=== PATIENT | female | born 1935 | race Caucasian/White ===

== ENCOUNTER 2017-01-16 02:12 | Observation (INO) | payer OTHER ==
[~2017-01-16] VITALS: Ht 157.5 cm; Wt 82.2 kg
[2017-01-16] VITALS (11 sets, daily range): BP systolic 106–179; BP diastolic 49–92; PULSE 63–84; RESP 16–19; TEMP 97–97.8; O2SAT 94–99
[~2017-01-16 02:12] MED LIST: ALPR0.5T99 PO; AMLO10 PO; ANTI2TAB PO; BENT20TA PO; DOCU1CAP39 PO; ENAL10 PO; FURO20 PO; LEVO50TA51 PO; LOSA100T PO; METF500 PO; METO50CR PO; OMEG100037 PO; ONDA4TAB7 PO; OXYC1SOL5 PO; POTA-243 PO; PRAV80 PO; PRED10 PO; PROT40TA PO; SERT50 PO; VITA20003 PO; VITA500S3 PO
[2017-01-16] MEDS ORDERED: SODIUM CHLORIDE 0.9% FLUSH 5 ML FLUSH IVF PRN ×2 (02:45→07:15)
[2017-01-16] MEDS ORDERED: HYDROmorphone HCL PF 1 MG/ML VIAL IV PUSH ONE ×2 (02:45→06:00)
[2017-01-16] MEDS ORDERED: ONDANSETRON HCL 4 MG/2 ML VIAL IVP ONE (02:45)
--- NOTE | 2017-01-16 02:56 | PD ---
HPI Chief Complaint: GI Complaint Time Seen by Provider: 02:36 Travel History International Travel<30 days: No Contact w/Intl Traveler<30days: No Traveled to known affect area: No History of Present Illness HPI 81 year-old female presents to the emergency department for complaint of severe abdominal pain. Pain is bilateral lower quadrant. Patient has associated nausea. Patient denies fever or chills. Patient's had no vomiting. No diarrhea or constipation. Last BM last evening and normal for Patient denies dysuria frequency or urgency. Patient's had multiple abdominal surgeries with several visible well-healed abdominal scars. Patient has no chest pain no shortness of breath no referred neck jaw back shoulder or arm pain. Unable to identify exacerbating factors no relief with Pepto-Bismol. PFSH Past Medical History Narrative Medical Anxiety depression dyslipidemia diabetes hypertension diverticulitis DVT COPD pneumonia hypothyroidism peptic ulcer disease gastric bypass with reversal; alcohol use; nursing notes reviewed Arthritis: Yes Asthma: No Autoimmune Disease: No Blood Disorders: Yes Anxiety: Yes Depression: Yes Heart Rhythm Problems: No Cancer: No Cardiovascular Problems: No High Cholesterol: Yes Chemotherapy: No Chest Pain: No Congestive Heart Failure: No COPD: No Cerebrovascular Accident: No Diabetes: Yes Diminished Hearing: No Diverticulitis: Yes Deep Vein Thrombosis: Yes Endocrine: Yes Gastrointestinal Disorders: Yes (DIVERTICULTIS) GERD: Yes Genitourinary: Yes Hepatitis: No Hiatal Hernia: No Hypertension: Yes Immune Disorder: No Implanted Vascular Access Dvce: No Kidney Stones: Yes Musculoskeletal: Yes (arthritis low back pain) Neurologic: No Psychiatric: Yes (anxiety depression) Reproductive: No Respiratory: Yes (copd) Immunizations Current: No Migraines: No Myocardial Infarction: No Pneumonia: Yes Radiation Therapy: No Renal Failure: No Seizures: No Sleep Apnea: No Thyroid Disease: Yes Ulcer: Yes PNEUMOCCOCAL Vaccine (Year): 1 Menopausal: Yes Past Surgical History Abdominal Surgery: Yes (partial colon resection) AICD: No Appendectomy: No Arteriovenous Shunt: No Cardiac Surgery: No Cholecystectomy: No Ear Surgery: No Endocrine Surgery: No Eye Surgery: Yes (mervat cataract surgery) Genitourinary Surgery: Yes (OR FOR DIVERTICULITIS; PERHAPS A PARTILAL COLECTOMY ) Gynecologic Surgery: Yes (HYSTERECTOMY) Hysterectomy: Yes Insulin Pump: No Joint Replacement: No Oral Surgery: No Pacemaker: No Thoracic Surgery: No Other Surgery: Yes (GASTRIC BYPASS WITH REVERSAL 30 YEARS AGO) Family History Family Hypercholesterolemia: Yes Social History Alcohol Use: Yes (OCCAISIONAL) Tobacco Use: No Substance Use: No Allergies-Medications (Allergen,Severity, Reaction): Coded Allergies: Codeine (Verified Adverse Reaction, Severe, Nausea/Vomiting, 01/16/17) NAUSEA/VOMITING Reported Meds & Prescriptions Reported Meds & Active Scripts Active Reported Gabby-Sedona (Aspirin Effervescent) 325-1,000-1,700 Mg Tabef Pepto-Bismol Liq (Bismuth Subsalicylate) 262 Mg/15 Ml Susp 30 Ml PO PRN Do not exceed 8 doses (240 mL or 16 tbsp) in 24 hours. Oxycodone-Acetaminophen 5-325 mg Tab 1 Tab PO Q4H PRN Zofran (Ondansetron HCl) 4 Mg Tab 4 Mg PO Q12HR PRN Metoprolol Succinate ER 24 HR (Metoprolol Succinate) 50 Mg Tab 50 Mg PO DAILY Losartan (Losartan Potassium) 100 Mg Tab 100 Mg PO DAILY Levoxyl (Levothyroxine Sodium) 50 Mcg Tab 50 Mcg PO DAILY Lasix (Furosemide) 20 Mg Tab 20 Mg PO DAILY Vasotec (Enalapril Maleate) 10 Mg Tab 10 Mg PO BID Vitamin B12 (Cyanocobalamin) 500 Mcg Tab 500 Mcg PO DAILY Vitamin D (Cholecalciferol) 2,000 Unit Tab Norvasc (Amlodipine Besylate) 10 Mg Tab 10 Mg PO DAILY Zoloft (Sertraline HCl) 50 Mg Tab 50 Mg PO DAILY Zoloft (Sertraline HCl) 25 Mg Tab 25 Mg PO DAILY Pravastatin 80 Mg Tab 80 Mg PO DAILY Klor-Con 10 (Potassium Chloride) 10 Meq Tab 10 Meq PO DAILY Protonix (Pantoprazole Sodium) 40 Mg Tab 40 Mg PO DAILY Review of Systems Except as stated in HPI: all other systems reviewed are Neg General / Constitutional: No: Fever, Chills HENT: No: Congestion Cardiovascular: No: Chest Pain or Discomfort Respiratory: Positive: Cough (chronic cough x 3 months), No: Shortness of Breath, Wheezing, Pleuritic Pain Gastrointestinal: Positive: Nausea, Abdominal Pain, No: Vomiting, Diarrhea Genitourinary: No: Dysuria, Flank Pain Musculoskeletal: No: Myalgias, Arthralgias Skin: No Rash Neurologic: No: Weakness Psychiatric: Positive: Anxiety Hematologic/Lymphatic: No: Easy Bruising Physical Exam Narrative GENERAL: Well-developed well-nourished female in no acute distress no respiratory distress but intermittently tearful. SKIN: Warm and dry. HEAD: Normocephalic. EYES: No scleral icterus. No injection or drainage. NECK: Supple, trachea midline. No JVD or lymphadenopathy. CARDIOVASCULAR: Regular rate and rhythm without murmurs, gallops, or rubs. RESPIRATORY: Breath sounds equal bilaterally. No accessory muscle use. GASTROINTESTINAL: Abdomen soft, diffusely tender bilateral lower quadrants greater than bilateral upper quadrant tenderness with voluntary guarding, no rebound, nondistended. MUSCULOSKELETAL: No cyanosis, or edema. BACK: Nontender without obvious deformity. No CVA tenderness. Data Data Last Documented VS Vital Signs Date Time Temp Pulse Resp B/P Pulse Ox O2 Delivery O2 Flow Rate FiO2 01/16/17 06:14 69 16 106/49 99 Room Air 01/16/17 02:20 97.0 Orders Complete Blood Count With Diff (01/16/17 02:36) Comprehensive Metabolic Panel (01/16/17 02:36) Lipase (01/16/17 02:36) Urinalysis - C+S If Indicated (01/16/17 02:36) Ct Abd/Pel W Iv Contrast(Rout) (01/16/17 02:36) Iv Access Insert/Monitor (01/16/17 02:36) Ecg Monitoring (01/16/17 02:36) Oximetry (01/16/17 02:36) Ondansetron Inj (Zofran Inj) (01/16/17 02:45) Sodium Chloride 0.9% Flush (Ns Flush) (01/16/17 02:45) Electrocardiogram (01/16/17 02:36) Chest, Single Ap (01/16/17 02:36) Hydromorphone Pf Inj (Dilaudid Pf Inj) (01/16/17 02:45) Iohexol 350 Inj (Omnipaque 350 Inj) (01/16/17 04:19) Hydromorphone Pf Inj (Dilaudid Pf Inj) (01/16/17 06:00) Place In Observation (01/16/17 ) Vital Signs (Adult) Q4H (01/16/17 06:39) Activity Oob Ad Kim (01/16/17 06:39) Intake + Output SILVIA.QSHIFT (01/16/17 06:39) Diet Clear Liquid (01/16/17 Breakfast) Sodium Chlor 0.9% 1000 Ml Inj (Ns 1000 M (01/16/17 06:39) Sodium Chloride 0.9% Flush (Ns Flush) (01/16/17 06:45) Sodium Chloride 0.9% Flush (Ns Flush) (01/16/17 09:00) Ondansetron Inj (Zofran Inj) (01/16/17 06:45) Bisacodyl Supp (Dulcolax Supp) (01/16/17 06:45) Comprehensive Metabolic Panel (01/17/17 06:00) Complete Blood Count With Diff (01/17/17 06:00) Scd Bilateral/Knee High SILVIA.BID (01/16/17 06:39) Timi Bilateral/Knee High SILVIA.QSHIFT (01/16/17 06:39) Acetaminophen (Tylenol) (01/16/17 06:45) Oxycodone-Acetamin 5-325 Mg (Percocet (01/16/17 06:45) Hydromorphone Pf Inj (Dilaudid Pf Inj) (01/16/17 06:45) Amlodipine (Norvasc) (01/16/17 09:00) Enalapril (Vasotec) (01/16/17 09:00) Losartan (Cozaar) (01/16/17 09:00) Metoprolol Succinate Er (Toprol Xl) (01/16/17 09:00) Pantoprazole (Protonix) (01/16/17 09:00) Pravastatin (Pravachol) (01/16/17 09:00) Sodium Chlor 0.9% 1000 Ml Inj (Ns 1000 M (01/16/17 07:00) Labs Laboratory Tests Test 01/16/17 01/16/17 02:30 04:55 White Blood Count 6.9 TH/MM3 Red Blood Count 4.88 MIL/MM3 Hemoglobin 14.4 GM/DL Hematocrit 43.5 % Mean Corpuscular Volume 89.2 FL Mean Corpuscular Hemoglobin 29.4 PG Mean Corpuscular Hemoglobin 33.0 % Concent Red Cell Distribution Width 13.6 % Platelet Count 175 TH/MM3 Mean Platelet Volume 8.3 FL Neutrophils (%) (Auto) 61.0 % Lymphocytes (%) (Auto) 25.5 % Monocytes (%) (Auto) 8.6 % Eosinophils (%) (Auto) 3.9 % Basophils (%) (Auto) 1.0 % Neutrophils # (Auto) 4.1 TH/MM3 Lymphocytes # (Auto) 1.8 TH/MM3 Monocytes # (Auto) 0.6 TH/MM3 Eosinophils # (Auto) 0.3 TH/MM3 Basophils # (Auto) 0.1 TH/MM3 CBC Comment DIFF FINAL Differential Comment Sodium Level 140 MEQ/L Potassium Level 4.0 MEQ/L Chloride Level 104 MEQ/L Carbon Dioxide Level 28.6 MEQ/L Anion Gap 7 MEQ/L Blood Urea Nitrogen 16 MG/DL Creatinine 1.00 MG/DL Estimat Glomerular Filtration 53 ML/MIN Rate Random Glucose 122 MG/DL Calcium Level 8.4 MG/DL Total Bilirubin 0.4 MG/DL Aspartate Amino Transf 31 U/L (AST/SGOT) Alanine Aminotransferase 30 U/L (ALT/SGPT) Alkaline Phosphatase 86 U/L Total Protein 7.0 GM/DL Albumin 3.7 GM/DL Lipase 108 U/L Urine Collection Type VOIDED Urine Color YELLOW Urine Turbidity CLEAR Urine pH 6.5 Urine Specific Johnson GREATER THAN 1.035 Urine Protein NEG mg/dL Urine Glucose (UA) NEG mg/dL Urine Ketones NEG mg/dL Urine Occult Blood NEG Urine Nitrite NEG Urine Bilirubin NEG Urine Leukocyte Esterase NEG Urine WBC 0-2 /hpf Urine Squamous Epithelial 0-5 /hpf Cells Microscopic Urinalysis Comment CULT NOT INDICATED MDM Medical Decision Making Medical Screen Exam Complete: Yes Emergency Medical Condition: Yes Medical Record Reviewed: Yes (admitted to [place] [id number] for resolved open-loop small bowel obstruction history of multiple previous abdominal surgeries with small bowel obstruction in [address] tho Segundo or hospital reported gastric bypass surgery with reversal of gastric bypass partial colectomy with colostomy and reversal of colostomy hysterectomy and multiple adhesions with surgeries in complications from intra-abdominal mesh placement.) Interpretation(s) EKG: Normal sinus rhythm rate [address] elevation or injury pattern change noted, left anterior fascicular block Urinalysis: Elevated specific gravity greater than 1.2035 otherwise values in normal range CBC & BMP Diagram 01/16/17 02:30 Vital Signs Date Time Temp Pulse Resp B/P Pulse Ox O2 Delivery O2 Flow Rate FiO2 01/16/17 04:24 78 16 125/80 96 Room Air 01/16/17 03:00 84 16 137/72 99 Room Air 01/16/17 02:35 72 16 179/87 99 01/16/17 02:20 97.0 71 18 166/92 97 Differential Diagnosis Abdominal pain, diverticulitis, colitis, UTI, pyelonephritis, renal colic, ischemic colitis, bowel obstruction, pneumonia Narrative Course IV access obtained specimens collected and sent for resulting; patient safety advisor Zofran 4 mg IV and Dilaudid 0.5 mg IV; CT abdomen and pelvis ordered CBC is automated differential values normal range complete metabolic panel values in normal range Patient resting comfortably normal pain resolved Patient sent to CT Urine specimen collected @ 5:[address] results remain pending @ 6:40 CT resulted --inflammatory changes of the small bowel and colon --call placed to Vascular surgery and medicine service Critical Care Narrative Aggregate critical care time was 40 minutes. Time to perform other separately billable procedures was not included in the critical care time. My time did not include minutes spent treating any other patients simultaneously or on activities that did not directly contribute to the patient's treatment. The services I provided to this patient were to treat and/or prevent clinically significant deterioration that could result in: bowel ischemia, shock, I provided critical care services requiring my management, as noted below: Chart data review, documentation time, medication orders and management, vital sign assessments/reviewing monitor data, ordering and reviewing lab tests, ordering and interpreting/reviewing x-rays and diagnostic studies, care of the patient and discussion of the patient with the admitting physicians. [facility] Point of Care Internal Pos. & Neg. Controls: Passed Fecal Specimen Occult Blood: Negative Physician Communication Physician Communication discussed with Dr Ndiaye vascular surgeon -- reviewed CT --reports does not see obvious immediate concern for mesenteric ischemia most likely will need general surgery consultation due to multiple adhesions and possibility for adhesion lysis and will see the patient in consultation as necessary recommends transfer to [facility]; case discussed with medicine service re: vascular surgery recommendation; case discussed with general surgery will see in consultation Diagnosis Primary Impression: Abdominal pain Qualified Code: R10.31 - Right lower quadrant abdominal pain Additional Impressions: Enterocolitis Partial small bowel obstruction Admitting Information Admitting Physician Requests: Francisca Hickey MD Jan 16, 2017 02:56
[2017-01-16] MEDS ORDERED: ZOFR4TAB PO (03:05)
[2017-01-16] MEDS ORDERED: VASO10TA8 PO (03:05)
[2017-01-16] MEDS ORDERED: PRAV80TA2 PO (03:05)
[2017-01-16] MEDS ORDERED: ZOLO50TA PO (03:05)
[2017-01-16] MEDS ORDERED: LOSA100T PO (03:05)
[2017-01-16] MEDS ORDERED: VITA500T49 PO (03:05)
[2017-01-16] MEDS ORDERED: POTA-243 PO (03:05)
[2017-01-16] MEDS ORDERED: AMLO10 PO (03:05)
[2017-01-16] MEDS ORDERED: METO50TA11 PO (03:05)
[2017-01-16] MEDS ORDERED: VITA20003 (03:05)
[2017-01-16] MEDS ORDERED: LEVO50TA53 PO (03:05)
[2017-01-16] MEDS ORDERED: ZOLO25TA PO (03:05)
[2017-01-16] MEDS ORDERED: PROT40TA PO (03:05)
[2017-01-16] MEDS ORDERED: FURO1TAB62 PO (03:05)
[2017-01-16] MEDS ORDERED: OXYC-432 PO (03:05)
[2017-01-16 03:09] LABS: AUTOMATED NEUTROPHIL # 4.1 TH/MM3 (1.8-7.7); BASOPHIL # 0.1 TH/MM3 (0-0.2); EOSINOPHIL # 0.3 TH/MM3 (0-0.4); EOSINOPHIL % 3.9 % (0.0-4.0); HEMATOCRIT 43.5 % (35.0-46.0); HEMO FLAGS DIFF FINAL; LYMPH % 25.5 % (9.0-44.0); LYMPHOCYTE # 1.8 TH/MM3 (1.0-4.8); MEAN CELL VOLUME 89.2 FL (80.0-100.0); MEAN CORPUSCULAR HEMOGLOBIN 29.4 PG (27.0-34.0); MONO % 8.6 % (0.0-8.0); PLATELET COUNT 175 TH/MM3 (150-450); RED BLOOD COUNT 4.88 MIL/MM3 (4.00-5.30); RED CELL DISTRIBUTION WIDTH 13.6 % (11.6-17.2); WHITE BLOOD COUNT 6.9 TH/MM3 (4.0-11.0)
[2017-01-16 03:21] LABS: CHLORIDE 104 MEQ/L (98-107); SODIUM (NA) 140 MEQ/L (136-145)
[2017-01-16] MEDS ORDERED: PEPT262S PO (03:21)
[2017-01-16] MEDS ORDERED: ALKATAB (03:21)
[2017-01-16 03:25] LABS: ANION GAP 7 MEQ/L (5-15); BICARBONATE 28.6 MEQ/L (21.0-32.0); BLOOD UREA NITROGEN 16 MG/DL (7-18)
[2017-01-16 03:28] LABS: ALT (GPT) 30 U/L (10-53); AST (GOT) 31 U/L (15-37); GLOMERULAR FILTRATION RATE 53 ML/MIN (>89)
[2017-01-16 03:30] LABS: TOTAL BILIRUBIN ADULT 0.4 MG/DL (0.2-1.0)
[2017-01-16 03:31] LABS: ALKALINE PHOSPHATASE 86 U/L (45-117)
--- NOTE | 2017-01-16 04:01 | RADHPO ---
EXAM DATE/TIME: 01/16/2017 03:07 [facility] COMPARISON: CHEST SINGLE AP, September 25, 2014, 8:25. INDICATIONS : Shortness of breath. MEDICAL HISTORY : None. SURGICAL HISTORY : ORIF left humerus ENCOUNTER: Initial ACUITY: 1 day PAIN SCORE: 8/10 LOCATION: Bilateral chest FINDINGS: A single view of the chest demonstrates the lungs to be symmetrically aerated without evidence of mas s, infiltrate or effusion. The cardiomediastinal contours are unremarkable. Previous plate and screw fixation of the proximal left humerus. CONCLUSION: No acute disease. Scott Mercado MD on January 16, 2017 at 3:59 Board Certified Radiologist. This report was verified electronically.
[2017-01-16] MEDS ORDERED: IOHEXOL 350 MG/ML 10 ML VIAL (for RAD DIAG) IV ONE (04:19)
[2017-01-16 05:03] LABS: BLOOD, URINE NEG (NEG); GLUCOSE,URINE NEG (NEG); KETONE, URINE NEG (NEG); NITRITE,URINE NEG (NEG); PH, URINE 6.5 (5.0-8.5)
[2017-01-16 05:13] LABS: COMMENT (UR) CULT NOT INDICATED; CULTURE IF INDICATED CULT NOT INDICATED; METHOD OF COLLECTION VOIDED; SQUAMOUS EPITHELIAL CELL URINE 0-5 /hpf (0-5); URINE COLOR YELLOW (YELLW/STRAW); WBC, URINE 0-2 /hpf (0-5)
--- NOTE | 2017-01-16 06:20 | RADHPO ---
EXAM DATE/TIME: 01/16/2017 03:41 [facility] COMPARISON: CT ABDOMEN & PELVIS W/O CONTRAST, September 25, 2014, 17:16. INDICATIONS : Diffuse abdominal pain. IV CONTRAST: 97 cc Omnipaque 350 (iohexol) IV ORAL CONTRAST: No oral contrast ingested. RADIATION DOSE: 17.31 CTDIvol (mGy) MEDICAL HISTORY : Gastroesophageal reflux disease. Deep venous thrombosis. Diverticulitis.Renal calculi. SURGICAL HISTORY : Gastric bypass. ENCOUNTER: Initial ACUITY: 1 day PAIN SCALE: 7/10 LOCATION: abdomen. TECHNIQUE: Volumetric scanning of the abdomen and pelvis was performed. Using automated exposure control and ad justment of the mA and/or kV according to patient size, radiation dose was kept as low as reasonably achievable to obtain optimal diagnostic quality images. FINDINGS: There is induration with prominent inflammatory changes, edema and interloop fluid throughout the rig ht abdomen with very Little similar change in the contralateral left peritoneal cavity. The changes e ncompass the right colon as well as multiple right-sided small bowel loops, none of which are focally abnormal in appearance. There are anastomoses associated with previous bowel surgeries on both right and left sides of the abdomen. There is mild nonspecific small bowel distention. There is no evidenc e of pneumoperitoneum. Looking at the solid organs, the liver, spleen, pancreas and adrenals are unremarkable. There is a cy st involving the posterior lateral upper pole cortex of the right kidney and a tiny nonobstructing le ft kidney stone is present. The gallbladder is mildly distended and contains some dependent stones. There are atherosclerotic changes involving the abdominal aorta and branch vessels. No evidence of an eurysm or major vessel occlusion. In the pelvis, uterus is surgically absent. Urinary bladder is decompressed. There is no evidence of retroperitoneal adenopathy. The inguinal regions are clear. There is a 1.5 cm irregular pleural-based nodular density in the posterior lateral right lung base wh ich should be followed. CONCLUSION: Fairly extensive nonspecific indurated changes in the right peritoneal cavity as described in detail above. No single discrete source for the presumed inflammatory process is identified. Scott Mercado MD on January 16, 2017 at 6:08 Board Certified Radiologist. This report was verified electronically.
[2017-01-16] MEDS ORDERED: ACETAMINOPHEN 325 MG TAB PO PRN (06:45)
[2017-01-16] MEDS ORDERED: oxyCODONE/ACETAMINOPHEN 5 MG/325 MG TAB PO PRN (06:45)
[2017-01-16] MEDS ORDERED: SODIUM CHLORIDE 0.9% FLUSH 5 ML FLUSH FLUSH PRN (06:45)
[2017-01-16] MEDS ORDERED: BISACODYL 10 MG SUPP PR PRN (06:45)
[2017-01-16] MEDS ORDERED: SODIUM CHLOR 0.9% 1000 ML INJ 1,000 ML IV ONE (07:00)
[2017-01-16] MEDS: SODIUM CHLOR 0.9% 1000 ML INJ 1,000 ML IV SCH ×2 (07:02→17:12)
[2017-01-16] MEDS ORDERED: SODIUM CHLORIDE 0.9% FLUSH 5 ML FLUSH IVF SCH (09:00)
[2017-01-16] MEDS: SODIUM CHLORIDE 0.9% FLUSH 5 ML FLUSH FLUSH SCH ×2 (09:00→20:45)
[2017-01-16] MEDS ORDERED: LOSARTAN 50 MG TAB PO SCH (09:00)
[2017-01-16] MEDS: ENALAPRIL MALEATE 10 MG TAB PO SCH ×2 (09:20→20:45)
[2017-01-16] MEDS: METOPROLOL SUCCINATE 50 MG EXTENDED RELEASE TAB PO SCH (09:20)
[2017-01-16] MEDS: PANTOPRAZOLE SOD 40 MG DELAYED RELEASE TAB PO SCH (09:20)
[2017-01-16] MEDS: PRAVASTATIN SOD 80 MG TAB PO SCH (09:21)
[2017-01-16] MEDS: HYDROmorphone HCL PF 1 MG/ML VIAL IV PRN ×4 (09:29→20:45)
--- NOTE | 2017-01-16 17:09 | HHI.HP ---
[facility] Mason Moreno Do, MD Admission Diagnosis abdominal pain h/o partial sbo; enterocolitis Diagnoses: (1) Abdominal pain Diagnosis: Principal Chief Complaint: abdominal pain Travel History International Travel<30 Days: No Contact w/Intl Traveler <30 Da: No Traveled to Known Affected Are: No History of Present Illness patient is a 81 y/o female with history of multiple abdominal surgeries in the past presented to ER with abdominal pain. she says that the pain started yesterday. pain is generalized and severe in intensity. pain is fairly constant. pain was associated with nausea. she had some chills but with no fever. she had a BM yesterday. Review of Systems Constitutional: COMPLAINS OF: Chills, DENIES: Fever, Weight loss, Night Sweats Eyes: DENIES: Blurred vision, Diplopia, Vision loss, Double Vision Ears, nose, mouth, throat: DENIES: Tinnitus, Vertigo, Throat pain, Epistaxis Respiratory: DENIES: Apneas, Cough, Snoring, Wheezing, Hemoptysis, Sputum production, Shortness of breath Cardiovascular: DENIES: Chest pain, Palpitations, Syncope, Dyspnea on Exertion , PND, Lower Extremity Edema, Orthopnea, Claudication Gastrointestinal: COMPLAINS OF: Abdominal pain, Nausea, DENIES: Black stools, Bloody stools, Constipation, Diarrhea, Vomiting, Difficulty Swallowing, Anorexia Genitourinary: DENIES: Urinary frequency, Urgency, Hematuria, Dysuria Musculoskeletal: DENIES: Joint pain, Muscle aches, Stiffness, Joint Swelling Integumentary: DENIES: Rash Neurologic: DENIES: Abnormal gait, Headache, Localized weakness, Paresthesias, Seizures, Speech Problems, Tremor, Poor Balance Psychiatric: DENIES: Anxiety, Confusion, Mood changes, Depression, Hallucinations, Agitation, Suicidal Ideation, Homicidal Ideation, Delusions Past Family Social History Past Medical History hypertension dyslipidemia diabetes mellitus in the past diverticulitis Past Surgical History hysterectomy gastric bypass surgery colon resection/ colostomy Reported Medications [place] (Aspirin Effervescent) 325-1,000-1,700 Mg Tabef Pepto-Bismol Liq (Bismuth Subsalicylate) 262 Mg/15 Ml Susp 30 Ml PO PRN Do not exceed 8 doses (240 mL or 16 tbsp) in 24 hours. Oxycodone-Acetaminophen 5-325 mg Tab 1 Tab PO Q4H PRN Zofran (Ondansetron HCl) 4 Mg Tab 4 Mg PO Q12HR PRN Metoprolol Succinate ER 24 HR (Metoprolol Succinate) 50 Mg Tab 50 Mg PO DAILY Losartan (Losartan Potassium) 100 Mg Tab 100 Mg PO DAILY Levoxyl (Levothyroxine Sodium) 50 Mcg Tab 50 Mcg PO DAILY Lasix (Furosemide) 20 Mg Tab 20 Mg PO DAILY Vasotec (Enalapril Maleate) 10 Mg Tab 10 Mg PO BID Vitamin B12 (Cyanocobalamin) 500 Mcg Tab 500 Mcg PO DAILY Vitamin D (Cholecalciferol) 2,000 Unit Tab Norvasc (Amlodipine Besylate) 10 Mg Tab 10 Mg PO DAILY Zoloft (Sertraline HCl) 50 Mg Tab 50 Mg PO DAILY Zoloft (Sertraline HCl) 25 Mg Tab 25 Mg PO DAILY Pravastatin 80 Mg Tab 80 Mg PO DAILY Klor-Con 10 (Potassium Chloride) 10 Meq Tab 10 Meq PO DAILY Protonix (Pantoprazole Sodium) 40 Mg Tab 40 Mg PO DAILY Allergies: Coded Allergies: Codeine (Verified Adverse Reaction, Severe, Nausea/Vomiting, 01/16/17) NAUSEA/VOMITING Active Ordered Medications Current Medications Ondansetron HCl (Zofran Inj) 4 mg ONCE ONCE IVP Last administered on 01/16/17 02:50; Start 01/16/17 at 02:45; Stop 01/16/17 at 02:46; Status DC IV Flush (NS Flush) 2 ml UNSCH PRN IVF FLUSH AFTER USING IV ACCESS; Start at 02:45; Status Cancel Hydromorphone HCl (Dilaudid Pf Inj) 0.5 mg ONCE ONCE IV PUSH Last administered on 01/16/17 02:50; Start 01/16/17 at 02:45; Stop 01/16/17 at 02:46; Status DC Iohexol (Omnipaque 350 Inj) 97 ml STK-MED ONCE IV Last administered on 04:19; Start 01/16/17 at 04:19; Stop 01/16/17 at 04:20; Status DC Hydromorphone HCl 0.2 mg 0.2 mg ONCE ONCE IV PUSH Last administered on 06:07; Start 01/16/17 at 06:00; Stop 01/16/17 at 06:01; Status DC Sodium Chloride (NS 1000 ml Inj) 1,000 ml @ 100 mls/hr Q10H IV Last administered on 01/16/17 07:02; Start 01/16/17 at 06:39 IV Flush (NS Flush) 2 ml UNSCH PRN FLUSH FLUSH AFTER USING IV ACCESS Last administered on 01/16/17 09:33; Start 01/16/17 at 06:45 IV Flush (NS Flush) 2 ml BID FLUSH ; Start 01/16/17 at 09:00 Ondansetron HCl (Zofran Inj) 4 mg Q6H PRN IVP NAUSEA OR VOMITING; Start at 06:45 Bisacodyl (Dulcolax Supp) 10 mg DAILY PRN CA CONSTIPATION; Start 01/16/17 at 06: 45 Acetaminophen (Tylenol) 650 mg Q6H PRN PO FEVER/PAIN SCALE 1 TO 2; Start at 06:45 Oxycodone/ Acetaminophen (Percocet 5-325 Mg) 1 tab Q6H PRN PO PAIN SCALE 3 TO 5; Start 01/16/17 at 06:45 Hydromorphone HCl (Dilaudid Pf Inj) 0.5 mg Q3H PRN IV Pain 6-10 Last administered on 01/16/17 13:25; Start 01/16/17 at 06:45 Amlodipine Besylate (Norvasc) 10 mg DAILY PO Last administered on 01/16/17 09: 21; Start 01/16/17 at 09:00 Enalapril Maleate (Vasotec) 10 mg BID PO Last administered on 01/16/17 09:20; Start 01/16/17 at 09:00 Losartan Potassium (Cozaar) 100 mg DAILY PO Last administered on 01/16/17 09:21 ; Start 01/16/17 at 09:00 Metoprolol Succinate (Toprol Xl) 50 mg DAILY PO Last administered on 01/16/17 09:20; Start 01/16/17 at 09:00 Pantoprazole Sodium (Protonix) 40 mg DAILY PO Last administered on 01/16/17 09: 20; Start 01/16/17 at 09:00 Pravastatin Sodium 80 mg 80 mg DAILY PO Last administered on 01/16/17 09:21; Start 01/16/17 at 09:00 Sodium Chloride (NS 1000 ml Inj) 1,000 ml @ 999 mls/hr BOLUS ONCE IV Last administered on 01/16/17 07:03; Start 01/16/17 at 07:00; Stop 01/16/17 at 08:00; Status DC IV Flush (NS Flush) 2 ml BID IVF ; Start 01/16/17 at 09:00; Status UNV IV Flush (NS Flush) 2 ml UNSCH PRN IVF FLUSH AFTER USING IV ACCESS; Start at 07:15; Status UNV Family History not relevant to this admission. Social History doesn't smoke. drinks occasionally. Physical Exam Vital Signs Vital Signs Date Time Temp Pulse Resp B/P Pulse Ox O2 Delivery O2 Flow Rate FiO2 01/16/17 13:29 97.5 63 18 139/65 94 01/16/17 12:35 69 18 148/71 94 01/16/17 09:25 67 16 135/69 94 Room Air 01/16/17 07:00 16 01/16/17 06:14 69 16 106/49 99 Room Air 01/16/17 04:24 78 16 125/80 96 Room Air 01/16/17 03:00 84 16 137/72 99 Room Air 01/16/17 02:35 72 16 179/87 99 01/16/17 02:20 97.0 71 18 166/92 97 Physical Exam GENERAL: This is a well-nourished, well-developed patient, in no apparent distress. SKIN: No rashes, ecchymoses or lesions. Cool and dry. HEAD: Atraumatic. Normocephalic. No temporal or scalp tenderness. EYES: Pupils equal round and reactive. Extraocular motions intact. No scleral icterus. No injection or drainage. ENT: Nose without bleeding, purulent drainage or septal hematoma. Throat without erythema, tonsillar hypertrophy or exudate. Uvula midline. Airway patent. NECK: Trachea midline. No JVD or lymphadenopathy. Supple, nontender, no meningeal signs. CARDIOVASCULAR: Regular rate and rhythm without murmurs, gallops, or rubs. RESPIRATORY: Clear to auscultation. Breath sounds equal bilaterally. No wheezes , rales, or rhonchi. GASTROINTESTINAL: Abdomen soft, generalized tenderness, nondistended. No hepato- splenomegaly, or palpable masses. No guarding. MUSCULOSKELETAL: Extremities without clubbing, cyanosis, or edema. No joint tenderness, effusion, or edema noted. No calf tenderness. Negative Homans sign bilaterally. NEUROLOGICAL: Awake and alert. Cranial nerves II through XII intact. Motor and sensory grossly within normal limits. Five out of 5 muscle strength in all muscle groups. Normal speech. Laboratory Laboratory Tests Test 01/16/17 01/16/17 02:30 04:55 White Blood Count 6.9 Red Blood Count 4.88 Hemoglobin 14.4 Hematocrit 43.5 Mean Corpuscular Volume 89.2 Mean Corpuscular Hemoglobin 29.4 Mean Corpuscular Hemoglobin 33.0 Concent Red Cell Distribution Width 13.6 Platelet Count 175 Mean Platelet Volume 8.3 Neutrophils (%) (Auto) 61.0 Lymphocytes (%) (Auto) 25.5 Monocytes (%) (Auto) 8.6 Eosinophils (%) (Auto) 3.9 Basophils (%) (Auto) 1.0 Neutrophils # (Auto) 4.1 Lymphocytes # (Auto) 1.8 Monocytes # (Auto) 0.6 Eosinophils # (Auto) 0.3 Basophils # (Auto) 0.1 CBC Comment DIFF FINAL Differential Comment Sodium Level 140 Potassium Level 4.0 Chloride Level 104 Carbon Dioxide Level 28.6 Anion Gap 7 Blood Urea Nitrogen 16 Creatinine 1.00 Estimat Glomerular Filtration 53 Rate Random Glucose 122 Calcium Level 8.4 Total Bilirubin 0.4 Aspartate Amino Transf 31 (AST/SGOT) Alanine Aminotransferase 30 (ALT/SGPT) Alkaline Phosphatase 86 Total Protein 7.0 Albumin 3.7 Lipase 108 Urine Collection Type VOIDED Urine Color YELLOW Urine Turbidity CLEAR Urine pH 6.5 Urine Specific [place] GREATER THAN 1.035 Urine Protein NEG Urine Glucose (UA) NEG Urine Ketones NEG Urine Occult Blood NEG Urine Nitrite NEG Urine Bilirubin NEG Urine Leukocyte Esterase NEG Urine WBC 0-2 Urine Squamous Epithelial 0-5 Cells Microscopic Urinalysis Comment CULT NOT INDICATED Result Diagram: 01/16/17 0230 01/16/17 0230 Imaging Last Impressions Chest X-Ray 01/16/17235 Signed Impressions: Service Date/Time: Monday, January 16, 2017 03:07 - CONCLUSION: No acute disease. Scott Mercado MD Abdomen/Pelvis CT 01/16/17235 Signed Impressions: Service Date/Time: Monday, January 16, 2017 03:41 - CONCLUSION: Fairly extensive nonspecific indurated changes in the right peritoneal cavity as described in detail above. No single discrete source for the presumed inflammatory process is identified. Scott Mercado MD EKG; sinus rhythm with left anterior fascicular block Assessment and Plan Assessment and Plan A/P - abdominal pain with history of multiple abdominal surgeries in the past CT of the abdomen with indurated changes / inflammatory process in right peritoneal cavity on liquid diet- continue with pain control and start IV antibiotics- general surgery consulted. -hypertension; continue norvasc and enalapril- will monitor and adjust the regimen as needed. -dyslipidemia; on statin -DVT prophylaxis; on SCD's Discussed Condition With the patient. Problem Qualifiers (1) Abdominal pain: Qualified Code: R10.31 - Right lower quadrant abdominal pain Janny Ackerman MD Jan 16, 2017 17:09
[2017-01-16] MEDS: PIPERACIL-TAZO 3.375 GM PREMIX 50 ML IV SCH (17:44)
--- NOTE | 2017-01-16 19:25 | EKG ---
Date Performed: 01/16/2017 Time Performed: 02:44:44 PTAGE: 81 years EKG: Sinus rhythm Left anterior fascicular block Since previous tracing, no significant change noted Borderline ECG PREVIOUS TRACING : 12/27/2015 07.49 DOCTOR: Alec Boston Interpretating Date/Time 01/16/2017 19:23:17
[2017-01-17] VITALS: BP 121/68; PULSE 84; RESP 21; TEMP 97.9; O2SAT 99
[2017-01-17] MEDS: PIPERACIL-TAZO 3.375 GM PREMIX 50 ML IV SCH ×5 (00:25→23:47)
[2017-01-17] MEDS: HYDROmorphone HCL PF 1 MG/ML VIAL IV PRN ×7 (01:35→23:46)
[2017-01-17] MEDS: SODIUM CHLOR 0.9% 1000 ML INJ 1,000 ML IV SCH ×3 (03:19→23:47)
[2017-01-17 05:39] LABS: AUTOMATED NEUTROPHIL # 2.5 TH/MM3 (1.8-7.7); BASOPHIL % 0.4 % (0.0-2.0); EOSINOPHIL # 0.2 TH/MM3 (0-0.4); EOSINOPHIL % 4.7 % (0.0-4.0); HEMO FLAGS DIFF FINAL; LYMPH % 25.1 % (9.0-44.0); LYMPHOCYTE # 1.1 TH/MM3 (1.0-4.8); MEAN CELL VOLUME 89.9 FL (80.0-100.0); MEAN CORPUSCULAR HEMOGLOBIN 29.7 PG (27.0-34.0); MONO % 10.8 % (0.0-8.0); PLATELET COUNT 112 TH/MM3 (150-450); RED BLOOD COUNT 3.78 MIL/MM3 (4.00-5.30); RED CELL DISTRIBUTION WIDTH 14.1 % (11.6-17.2); WHITE BLOOD COUNT 4.3 TH/MM3 (4.0-11.0)
[2017-01-17 06:04] LABS: ALKALINE PHOSPHATASE 69 U/L (45-117); ALT (GPT) 23 U/L (10-53); ANION GAP 9 MEQ/L (5-15); AST (GOT) 23 U/L (15-37); BICARBONATE 28.2 MEQ/L (21.0-32.0); BLOOD UREA NITROGEN 8 MG/DL (7-18); CHLORIDE 103 MEQ/L (98-107); GLOMERULAR FILTRATION RATE 63 ML/MIN (>89); POTASSIUM 4.5 MEQ/L (3.5-5.1); SODIUM (NA) 140 MEQ/L (136-145); TOTAL BILIRUBIN ADULT 0.5 MG/DL (0.2-1.0)
[2017-01-17] MEDS: ONDANSETRON HCL 4 MG/2 ML VIAL IVP PRN ×3 (07:32→17:30)
[2017-01-17 07:40] VITALS: BP 177/74; PULSE 66; RESP 18; TEMP 98.1; O2SAT 93
[2017-01-17] MEDS: ENALAPRIL MALEATE 10 MG TAB PO SCH ×2 (09:23→20:53)
[2017-01-17] MEDS: METOPROLOL SUCCINATE 50 MG EXTENDED RELEASE TAB PO SCH (09:23)
[2017-01-17] MEDS: SODIUM CHLORIDE 0.9% FLUSH 5 ML FLUSH FLUSH SCH ×2 (09:24→20:54)
[2017-01-17] MEDS: PANTOPRAZOLE SOD 40 MG DELAYED RELEASE TAB PO SCH (09:24)
[2017-01-17] MEDS: PRAVASTATIN SOD 80 MG TAB PO SCH (09:24)
--- NOTE | 2017-01-17 09:26 | MB ---
cc: SHAREE VÁSQUEZ MD DATE OF CONSULTATION: 01/17/2017 REASON FOR CONSULTATION: HISTORY OF PRESENT ILLNESS: The patient is a 81-year-old who has a 2-day history of crampy lower abdominal pain with some nausea but no vomiting. She has been moving her bowels with her last bowel movement yesterday with some diarrhea without blood. The patient has a history of colostomy reversal by Dr. Lam in 2003. She has had complex ventral hernia repair at that time. She was evaluated in the emergency room where CT scan showed inflammation surrounding loops of bowel on the right side of the abdomen. There is some loculated fluid between loops of small bowel in that position. There is no free air. There is no actual inflammatory thickening of the small bowel. The patient has had previous episodes of this problem. She was evaluated in 2011 and 2013 with similar symptoms and with nearly identical CT scan findings. Those episodes resolved with conservative treatment. The recent CT scan does not show any evidence of small bowel obstruction. The patient has a history of pneumonia and some cardiac problems. She states she has had fluid around her heart in the past. PHYSICAL EXAMINATION: She is alert without distress but is complaining of pain in the abdomen. She is afebrile with normal vital signs. Respirations are normal. Skin is warm and dry. Abdomen is mostly soft but there is same moderate tenderness in the right mid abdomen area. There is tenderness on the left in addition but less. Rectal: Negative. LABORATORY DATA: Show a normal white blood cell count and hemoglobin. Electrolytes are normal. Liver function tests are normal. ASSESSMENT: Abdominal pain and evidence of small bowel inflammation on CT scan. The reason for the inflammation is not clear. Consider acute enteritis, inflammatory bowel disease or ischemia. The patient has had previous episodes of this problem that resolved with conservative treatment. RECOMMENDATIONS: IV fluids, antibiotics, and will arrange for a CT angiogram to evaluate the bowel vasculature as well as a lactic acid level. MD LESTER Joaquin/TRISHA /9:08 AM /9:17 AM MATTHEW
[2017-01-17] MEDS ORDERED: IOHEXOL 350 MG/ML 10 ML VIAL (for RAD DIAG) IV ONE (09:54)
[2017-01-17] MEDS ORDERED: ONDANSETRON HCL 4 MG/2 ML VIAL IV PUSH ONE (10:30)
--- NOTE | 2017-01-17 11:30 | RADHPO ---
EXAM DATE/TIME: 01/17/2017 09:42 [place] COMPARISON: CT ABDOMEN & PELVIS W CONTRAST, January 16, 2017, 3:41. INDICATIONS : Non specific abdominal pain. History of small bowel obstruction. Evaluate for ischemia. IV CONTRAST: 94 cc Omnipaque 350 (iohexol) IV ORAL CONTRAST: No oral contrast ingested. RADIATION DOSE: 24.62 CTDIvol (mGy) MEDICAL HISTORY : Hypertension. Diverticulitis. Cholelithiasis.Diabetes. SURGICAL HISTORY : Colon resection. ENCOUNTER: Initial ACUITY: 2 days PAIN SCALE: 4/10 LOCATION: Bilateral abdomen/pelvis TECHNIQUE: Volumetric scanning was performed using a multi-row detector CT scanner. The data was post processed with a variety of visualization algorithms including full volume maximum intensity projection, multi -planar sliding thin slab reformation, curved planar reformation, and surface rendering techniques. Using automated exposure control and adjustment of the mA and/or kV according to patient size, radiat ion dose was kept as low as reasonably achievable to obtain optimal diagnostic quality images. FINDINGS: ABDOMINAL AORTA: There is severe atherosclerotic disease of the abdominal aorta. No aneurysm is present. Celiac trunk is patent. There is atherosclerotic disease and the ostium but no significant stenosis is present. Ma j. branches of the celiac trunk are patent. The superior mesenteric artery demonstrates no significan t stenosis. There is mild atherosclerotic disease near the ostium. Multiple peripheral superior mesen teric artery branches demonstrate normal enhancement without occlusion. JUAQUIN is questionably patent. T here are single renal arteries bilaterally with atherosclerotic disease at the ostia. There is modera te narrowing of the proximal right renal artery. RIGHT PELVIS: There is moderate atherosclerotic disease of the common iliac artery. The internal and external iliac artery demonstrate no significant stenosis. No aneurysm is present. LEFT PELVIS: There is moderate atherosclerotic disease of the left common iliac artery. No significant stenosis is identified within the internal or external iliac artery. The venous side is not evaluated on this examination but demonstrated no abnormality on yesterda y's study. The inflammatory changes and fluid within the mesentery particularly in the right abdomen have significantly improved in the interval and almost completely resolved. There is no free air or s ignificant free fluid present. Calcified stones are present within the gallbladder. There has been pr ior surgery in the colon and in multiple locations of the small bowel. Postsurgical changes are prese nt on the anterior abdominal wall. There is a 4.9 cm cyst at the upper pole of the right kidney. CONCLUSION: 1. The arterial mesenteric vasculature demonstrates no stenosis or occlusion. The mesenteric venous s tructures demonstrated no abnormality on yesterday's examination. Overall, there is severe atheroscle rotic disease within the aorta. 2. The mesenteric inflammatory changes and fluid in the right abdomen described on yesterday's examin ation have significantly improved and nearly completely resolved. 3. Otherwise, incidental findings are described above. Scott Ferguson MD on January 17, 2017 at 11:21 Board Certified Radiologist. This report was verified electronically.
[2017-01-17 12:05] VITALS: BP 170/76; PULSE 67; RESP 19; TEMP 97.7; O2SAT 93
[2017-01-17] MEDS: metroNIDAZOLE 500 MG INJ 100 ML IV SCH ×2 (12:53→20:53)
[2017-01-17 15:28] VITALS: BP 161/72; PULSE 67; RESP 18; TEMP 97.7; O2SAT 92
--- NOTE | 2017-01-17 17:10 | HHI.PR ---
Subjective Remarks Patient seen this morning around 10:30 AM. She reports nausea after drinking CT contrast. Denies any chest pain or shortness of breath. Objective Vital Signs Date Time Temp Pulse Resp B/P Pulse Ox O2 Delivery O2 Flow Rate FiO2 01/17/17 15:28 97.7 67 18 161/72 92 01/17/17 13:24 20 01/17/17 12:05 97.7 67 19 170/76 93 01/17/17 07:40 98.1 66 18 177/74 93 01/17/17 00:00 97.9 84 21 121/68 99 01/16/17 20:00 98 01/16/17 19:45 97.8 68 19 128/74 97 I/O 01/16/17 01/16/17 01/16/17 01/17/17 01/17/17 01/17/17 07:00 15:00 23:00 07:00 15:00 23:00 Intake Total 1000 ml 1000 ml 500 ml Output Total 250 ml 800 ml Balance -250 ml 1000 ml 200 ml 500 ml Intake Oral 500 ml IV Total 1000 ml 500 ml 500 ml Output Urine Total 250 ml 800 ml # Voids 1 2 4 Result Diagram: 01/17/17 0509 01/17/17 0509 Imaging Last Impressions Abdomen/Pelvis CT 01/17/17 0901 Signed Impressions: Service Date/Time: Tuesday, January 17, 2017 09:42 - CONCLUSION: 1. The arterial mesenteric vasculature demonstrates no stenosis or occlusion. The mesenteric venous structures demonstrated no abnormality on yesterday's examination. Overall, there is severe atherosclerotic disease within the aorta. 2. The mesenteric inflammatory changes and fluid in the right abdomen described on yesterday's examination have significantly improved and nearly completely resolved. 3. Otherwise, incidental findings are described above. Scott Ferguson MD Chest X-Ray 01/16/17 0236 Signed Impressions: Service Date/Time: Monday, January 16, 2017 03:07 - CONCLUSION: No acute disease. Scott Mercado MD Objective Remarks GENERAL: Sitting up in bed. Appears uncomfortable. Alert and oriented 3. SKIN: Warm and dry. HEAD: Normocephalic. EYES: No scleral icterus. No injection or drainage. NECK: Supple, trachea midline. No JVD CARDIOVASCULAR: Regular rate and rhythm without murmurs, gallops, or rubs. RESPIRATORY: Breath sounds equal bilaterally. No accessory muscle use. GASTROINTESTINAL: Abdomen soft. Tender to moderate palpation. No rebound or guarding. Positive bowel sounds. MUSCULOSKELETAL: No cyanosis, or edema. BACK: Nontender without obvious deformity. No CVA tenderness. A/P Assessment and Plan //abdominal pain with history of multiple abdominal surgeries in the past - CT of the abdomen with indurated changes / inflammatory process in right peritoneal cavity -on liquid diet - continue with pain control -Continue Zosyn and metronidazole. -CT abdomen as above. -Continue to monitor. Appreciate an oral surgery assistance. //Nausea. Secondary to pain. -01/17. Increase Zofran //hypertension - continue norvasc -Hold losartan -When necessary enalapril We'll pressure acceptable. Continue to monitor. //dyslipidemia; on statin //DVT prophylaxis; on SCD's Discharge Planning When clinically improved. Harrison Eric MD Jan 17, 2017 17:10
[2017-01-17 20:34] VITALS: BP 192/76; PULSE 76; O2SAT 92
[2017-01-18] VITALS (7 sets, daily range): BP systolic 138–227; BP diastolic 60–95; PULSE 65–75; RESP 18; TEMP 98; O2SAT 94–98
[2017-01-18] MEDS: HYDROmorphone HCL PF 1 MG/ML VIAL IV PRN ×2 (04:21→08:27)
[2017-01-18] MEDS: metroNIDAZOLE 500 MG INJ 100 ML IV SCH (05:49)
[2017-01-18] MEDS: PIPERACIL-TAZO 3.375 GM PREMIX 50 ML IV SCH (05:49)
[2017-01-18] MEDS: METOPROLOL SUCCINATE 50 MG EXTENDED RELEASE TAB PO SCH (08:13)
[2017-01-18] MEDS: PRAVASTATIN SOD 80 MG TAB PO SCH (08:13)
[2017-01-18] MEDS: SODIUM CHLORIDE 0.9% FLUSH 5 ML FLUSH FLUSH SCH (08:13)
[2017-01-18] MEDS: ENALAPRIL MALEATE 10 MG TAB PO SCH (08:13)
[2017-01-18] MEDS: PANTOPRAZOLE SOD 40 MG DELAYED RELEASE TAB PO SCH (08:13)
[2017-01-18] MEDS: SODIUM CHLOR 0.9% 1000 ML INJ 1,000 ML IV SCH (08:15)
[2017-01-18] MEDS: ONDANSETRON HCL 4 MG/2 ML VIAL IVP PRN (08:34)
[2017-01-18] MEDS ORDERED: CIPR-9 PO (10:38)
[2017-01-18] MEDS ORDERED: OXYC-432 PO (10:38)
[2017-01-18] MEDS ORDERED: METR500T10 PO (10:38)
[2017-01-18] MEDS ORDERED: ZOFR4TAB PO (10:38)
--- NOTE | 2017-01-18 10:44 | HHI.PR ---
Subjective Remarks pt says she feels well. denies any CP or sob. abd pain much improved. no n/v. feels like going home Objective Vital Signs Date Time Temp Pulse Resp B/P Pulse Ox O2 Delivery O2 Flow Rate FiO2 01/18/17 09:52 138/60 01/18/17 08:59 18 01/18/17 08:01 98.0 66 18 198/85 98 01/18/17 06:24 227/95 01/18/17 03:49 75 94 01/18/17 00:13 70 178/73 95 01/17/17 20:34 76 192/76 92 01/17/17 15:28 97.7 67 18 161/72 92 01/17/17 12:05 97.7 67 19 170/76 93 I/O 01/17/17 01/17/17 01/17/17 01/18/17 01/18/17 01/18/17 07:00 15:00 23:00 07:00 15:00 23:00 Intake Total 500 ml Balance 500 ml IV Total 500 ml # Voids 2 4 Result Diagram: 01/17/17 0509 01/17/17 0509 Objective Remarks GENERAL: Sitting up in bed. Appears comfortable. Alert and oriented 3. SKIN: Warm and dry. small skin rash right flang, small indurated papules, moist area. HEAD: Normocephalic. EYES: No scleral icterus. No injection or drainage. NECK: Supple, trachea midline. No JVD CARDIOVASCULAR: Regular rate and rhythm without murmurs, gallops, or rubs. RESPIRATORY: Breath sounds equal bilaterally. No accessory muscle use. GASTROINTESTINAL: Abdomen soft. nt, nd MUSCULOSKELETAL: No cyanosis, or edema. BACK: Nontender without obvious deformity. No CVA tenderness. A/P Assessment and Plan //abdominal pain with history of multiple abdominal surgeries in the past - CT of the abdomen with indurated changes / inflammatory process in right peritoneal cavity -on liquid diet - continue with pain control -Continue Zosyn and metronidazole. -CT abdomen as above. -much improved on zosyn. Appreciate Colorectal assistance. -Complete 14 days course abx as outpt //Nausea. Secondary to pain. -01/17. Increase Zofran -01/18 resolved. //hypertension - continue norvasc -Hold losartan -When necessary enalapril -SBP elevated yesterday - normal today. cont home meds. possibly was secondary to pain, which is now better. //dyslipidemia; on statin //Skin rash - likley fungal - OTC clotrimazole. //DVT prophylaxis; on SCD's Discharge Planning DC home today if tolerates lunch. Good condition. Diet heart health, activity Ad clovis. See Discharge med list. followup PCP. Harrison Eric MD Jan 18, 2017 10:44
[2017-01-18] MEDS ORDERED: POTASSIUM CHLORIDE 10 MEQ CONTROLLED RELEASE TAB PO SCH (10:45)
[2017-01-18] MEDS ORDERED: ACETAMINOPHEN/HYDROcodone 325 MG/5 MG TAB PO PRN (10:45)
--- NOTE | 2017-01-18 10:56 | HHI.PR ---
Subjective Remarks Pt known to me for last 13 years. Please see old records. Originally referred to me by Dr Evans. I closed her Colostomy/Leroy pouch in April 2004. Also repaired a very large Ventral hernia with Polypropylene mesh over her fascia. She had a very unfavorable abdomen with dense adhesions and near enterotomies requiring SB repairs and resections. She has suffered with obesity and previous gastric bypass and eventual reversal. 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 She eventually went to Dr Eaton at [facility] and had it removed in 2011 and has done well with the Biologic mesh replacement. He did not have to enter the abdomen at that time. These recent several episodes over the last several years are intermittent and may be related to short lived partial SB obstruction with quick resolution of symptoms and CT scan findings. Seems better today. No more N or V. Less pain. Wants to go home today. Objective Vital Signs Date Time Temp Pulse Resp B/P Pulse Ox O2 Delivery O2 Flow Rate FiO2 01/18/17 09:52 138/60 01/18/17 08:59 18 01/18/17 08:01 98.0 66 18 198/85 98 01/18/17 06:24 227/95 01/18/17 03:49 75 94 01/18/17 00:13 70 178/73 95 01/17/17 20:34 76 192/76 92 01/17/17 15:28 97.7 67 18 161/72 92 01/17/17 12:05 97.7 67 19 170/76 93 I/O 01/17/17 01/17/17 01/17/17 01/18/17 01/18/17 01/18/17 07:00 15:00 23:00 07:00 15:00 23:00 Intake Total 500 ml Balance 500 ml IV Total 500 ml # Voids 2 4 Result Diagram: 01/17/17 0509 01/17/17 0509 Objective Remarks Abd: firm from many prior laparotomies. Mild discomfort on palpation but much less according to the patient. Assessment and Plan Assessment and Plan Stable IV infiltrated. Will D/C IV meds. Oral meds and advance diet. D/C today or tomorrow if tolerates diet and symptoms resolved. I will see in several weeks as OP in my office. Scott Lam MD Jan 18, 2017 10:56
[2017-01-18] MEDS ORDERED: CLOTRIMAZOLE 1% CREAM 15 GM TOPICAL SCH (11:00)
[2017-01-19] MEDS ORDERED: LEVOTHYROXINE SODIUM 50 MCG TAB PO SCH (06:00)
[2017-01-19] MEDS ORDERED: CYANOCOBALAMIN 100 MCG TAB PO SCH (09:00)
== END 2017-01-18 15:21 | disposition home or self-care (01) ==
LOC: PHED 02:12 → PHEDA 07:15 → PHEDH 11:12 → NEPHCDU 13:21
PROVIDERS: ADMIT Internal Medicine; ATTEND Internal Medicine
DX: K52.9 Noninfective gastroenteritis and colitis, unspecified (principal); R10.30 Lower abdominal pain, unspecified; J44.9 Chronic obstructive pulmonary disease, unspecified; I10 Essential (primary) hypertension; E78.5 Hyperlipidemia, unspecified; E11.9 Type 2 diabetes mellitus without complications; E03.9 Hypothyroidism, unspecified; F41.8 Other specified anxiety disorders; K21.9 Gastro-esophageal reflux disease without esophagitis; Z87.11 Personal history of peptic ulcer disease
CPT/HCPCS: 71010; 74174; 74177; 80053; 81001; 83605; 83690; 85025; 93005; 96374; 96375; 96376; 99291; G0378; J1170; J2405; J2543; J7030; Q9967

== ENCOUNTER 2017-08-23 | Emergency (ER) | payer OTHER ==
[~2017-08-23] VITALS: Ht 157.5 cm; Wt 83.8 kg
[~2017-08-23] MED LIST changes: +ALKATAB; -ALPR0.5T99 PO; -ANTI2TAB PO; -BENT20TA PO; +CIPR-9 PO; -DOCU1CAP39 PO; -ENAL10 PO; +FURO1TAB62 PO; -FURO20 PO; -LEVO50TA51 PO; +LEVO50TA53 PO; -LOSA100T PO; -METF500 PO; -METO50CR PO; +METO50TA11 PO; +METR500T10 PO; -OMEG100037 PO; -ONDA4TAB7 PO; +OXYC-432 PO; -OXYC1SOL5 PO; +PEPT262S PO; -PRAV80 PO; +PRAV80TA2 PO; -PRED10 PO; -SERT50 PO; +VASO10TA8 PO; +VITA20003; -VITA20003 PO; -VITA500S3 PO; +VITA500T49 PO; +ZOFR4TAB PO; +ZOLO25TA PO
[2017-08-23 00:07] VITALS: BP 141/101; PULSE 89; RESP 20; TEMP 97.6; O2SAT 98
[2017-08-23 00:11] VITALS: PULSE 88; RESP 20; TEMP 97.8; O2SAT 96
[2017-08-23 00:20] VITALS: BP 212/86
--- NOTE | 2017-08-23 00:23 | PD ---
HPI Chief Complaint: Abdominal Pain Time Seen by Provider: 00:18 Travel History International Travel<30 days: No Contact w/Intl Traveler<30days: No Traveled to known affect area: No History of Present Illness HPI 81-year-old female patient with history of diverticulitis, status post colon resection, hysterectomy, multiple medical issues, presents to the ER today for 1 day history of 15 out of 10 abdominal pains, nausea, vomiting. She does not know any exacerbating or alleviating factors. She denies any diarrhea, fevers, or other symptoms. She denies any previous symptoms like this. Modifying Factors: None Associated Signs & Symptoms: Abdominal pains, nausea and vomiting Risk Factors: Diverticulitis history, colonic Resection, hysterectomy, multiple abdominal surgeries PFSH Past Medical History Arthritis: Yes Asthma: No Autoimmune Disease: No Blood Disorders: Yes Anxiety: Yes Depression: Yes Heart Rhythm Problems: No Cancer: No Cardiovascular Problems: No High Cholesterol: Yes Chemotherapy: No Chest Pain: No Congestive Heart Failure: No COPD: No Cerebrovascular Accident: No Diabetes: Yes Diminished Hearing: No Diverticulitis: Yes Deep Vein Thrombosis: Yes Endocrine: Yes Gastrointestinal Disorders: Yes (reflux diaherra) GERD: Yes Genitourinary: Yes Hepatitis: No Hiatal Hernia: No Hypertension: Yes Immune Disorder: No Implanted Vascular Access Dvce: No Kidney Stones: Yes Musculoskeletal: Yes (arthritis , low back pain) Neurologic: Yes Psychiatric: Yes (anxiety depression) Reproductive: No Respiratory: Yes (COPD) Immunizations Current: No Migraines: No Myocardial Infarction: No Pneumonia: Yes Radiation Therapy: No Renal Failure: No Seizures: No Sleep Apnea: No Thyroid Disease: Yes Ulcer: Yes PNEUMOCCOCAL Vaccine (Year): 1 Menopausal: Yes Past Surgical History Abdominal Surgery: Yes (partial colon resection) AICD: No Appendectomy: No Arteriovenous Shunt: No Cardiac Surgery: No Cholecystectomy: No Ear Surgery: No Endocrine Surgery: No Eye Surgery: Yes (mervat cataract surgery) Genitourinary Surgery: Yes (OR FOR DIVERTICULITIS; PERHAPS A PARTILAL COLECTOMY ) Gynecologic Surgery: Yes (HYSTERECTOMY) Hysterectomy: Yes Insulin Pump: No Joint Replacement: No Oral Surgery: No Pacemaker: No Thoracic Surgery: No Other Surgery: Yes (GASTRIC BYPASS WITH REVERSAL 30 YEARS AGO) Family History Family Hypercholesterolemia: Yes Social History Alcohol Use: Yes (OCCAISIONAL) Tobacco Use: No Substance Use: No Allergies-Medications (Allergen,Severity, Reaction): Coded Allergies: codeine (Unverified Adverse Reaction, Severe, Nausea/Vomiting, 06/29/17) NAUSEA/VOMITING Reported Meds & Prescriptions Reported Meds & Active Scripts Active Metronidazole 500 Mg Tab 500 Mg PO TID Cipro (Ciprofloxacin HCl) 500 Mg Tab 500 Mg PO BID Oxycodone-Acetaminophen 5-325 mg Tab 1 Tab PO Q4H PRN Zofran (Ondansetron HCl) 4 Mg Tab 4 Mg PO Q6HR PRN Reported [place] (Aspirin Effervescent) 325-1,000-1,700 Mg Tabef Pepto-Bismol Liq (Bismuth Subsalicylate) 262 Mg/15 Ml Susp 30 Ml PO PRN Do not exceed 8 doses (240 mL or 16 tbsp) in 24 hours. Metoprolol Succinate ER 24 HR (Metoprolol Succinate) 50 Mg Tab 50 Mg PO DAILY Levoxyl (Levothyroxine Sodium) 50 Mcg Tab 50 Mcg PO DAILY Lasix (Furosemide) 20 Mg Tab 20 Mg PO DAILY Vasotec (Enalapril Maleate) 10 Mg Tab 10 Mg PO BID Vitamin B12 (Cyanocobalamin) 500 Mcg Tab 500 Mcg PO DAILY Vitamin D (Cholecalciferol) 2,000 Unit Tab Norvasc (Amlodipine Besylate) 10 Mg Tab 10 Mg PO DAILY Zoloft (Sertraline HCl) 25 Mg Tab 25 Mg PO DAILY Pravastatin 80 Mg Tab 80 Mg PO DAILY Klor-Con 10 (Potassium Chloride) 10 Meq Tab 10 Meq PO DAILY Protonix (Pantoprazole Sodium) 40 Mg Tab 40 Mg PO DAILY Review of Systems Except as stated in HPI: all other systems reviewed are Neg Physical Exam Narrative GENERAL: Well-developed elderly white female patient currently in moderate distress. Awake and oriented 3. SKIN: Focused skin assessment warm/dry. HEAD: Atraumatic. Normocephalic. EYES: Pupils equal and round. No scleral icterus. No injection or drainage. ENT: No nasal bleeding or discharge. Mucous membranes pink and moist. NECK: Trachea midline. No JVD. CARDIOVASCULAR: Regular rate and rhythm. No murmur appreciated. RESPIRATORY: No accessory muscle use. Clear to auscultation. Breath sounds equal bilaterally. GASTROINTESTINAL: Abdomen soft, diffuse abdominal tenderness without guarding or rebound, nondistended. Hepatic and splenic margins not palpable. MUSCULOSKELETAL: No obvious deformities. No clubbing. No cyanosis. No edema. NEUROLOGICAL: Awake and alert. No obvious cranial nerve deficits. Motor grossly within normal limits. Normal speech. PSYCHIATRIC: Appropriate mood and affect; insight and judgment normal. Data Data Last Documented VS Vital Signs Date Time Temp Pulse Resp B/P (MAP) Pulse Ox O2 Delivery O2 Flow Rate FiO2 08/23/17 00:30 96 Room Air 08/23/17 00:11 97.8 88 20 Orders Orders Complete Blood Count With Diff (08/23/17:18) Comprehensive Metabolic Panel (08/23/17:18) Lipase (08/23/17:18) Urinalysis - C+S If Indicated (08/23/17:18) Ct Abd/Pel W Iv Contrast(Rout) (08/23/17:18) Iv Access Insert/Monitor (08/23/17:18) Ecg Monitoring (08/23/17:18) Oximetry (08/23/17:18) Ondansetron Inj (Zofran Inj) (08/23/17 00:30) Sodium Chloride 0.9% Flush (Ns Flush) (08/23/17 00:30) Hydromorphone Pf Inj (Dilaudid Pf Inj) (08/23/17 00:30) Urine Culture (08/23/17 00:45) Iohexol 350 Inj (Omnipaque 350 Inj) (08/23/17 02:09) Labs Laboratory Tests Test 08/23/17 00:45 08/23/17 01:00 Urine Color YELLOW Urine Turbidity SLIGHT Urine pH 8.0 Urine Specific [place] 1.023 Urine Protein TRACE mg/dL Urine Glucose (UA) NEG mg/dL Urine Ketones NEG mg/dL Urine Occult Blood NEG Urine Nitrite NEG Urine Bilirubin NEG Urine Leukocyte Esterase TRACE Urine WBC 9-14 /hpf Urine WBC Clumps RARE Urine Squamous Epithelial Cells 6-8 /hpf Urine Bacteria MOD /hpf Urine Mucus OCC /lpf Microscopic Urinalysis Comment CULTURE INDICATED White Blood Count 9.4 TH/MM3 Red Blood Count 4.92 MIL/MM3 Hemoglobin 14.3 GM/DL Hematocrit 43.5 % Mean Corpuscular Volume 88.3 FL Mean Corpuscular Hemoglobin 29.0 PG Mean Corpuscular Hemoglobin Concent 32.8 % Red Cell Distribution Width 13.4 % Platelet Count 172 TH/MM3 Mean Platelet Volume 8.2 FL Neutrophils (%) (Auto) 74.2 % Lymphocytes (%) (Auto) 16.3 % Monocytes (%) (Auto) 6.5 % Eosinophils (%) (Auto) 3.0 % Basophils (%) (Auto) 0.0 % Neutrophils # (Auto) 7.0 TH/MM3 Lymphocytes # (Auto) 1.5 TH/MM3 Monocytes # (Auto) 0.6 TH/MM3 Eosinophils # (Auto) 0.3 TH/MM3 Basophils # (Auto) 0.0 TH/MM3 CBC Comment DIFF FINAL Differential Comment Blood Urea Nitrogen 22 MG/DL Creatinine 1.10 MG/DL Random Glucose 147 MG/DL Total Protein 7.7 GM/DL Albumin 4.2 GM/DL Calcium Level 9.1 MG/DL Alkaline Phosphatase 101 U/L Aspartate Amino Transf (AST/SGOT) 34 U/L Alanine Aminotransferase (ALT/SGPT) 27 U/L Total Bilirubin 0.5 MG/DL Sodium Level 139 MEQ/L Potassium Level 3.5 MEQ/L Chloride Level 100 MEQ/L Carbon Dioxide Level 30.0 MEQ/L Anion Gap 9 MEQ/L Estimat Glomerular Filtration Rate 48 ML/MIN Lipase 119 U/L [facility] Medical Decision Making Medical Screen Exam Complete: Yes Emergency Medical Condition: Yes Medical Record Reviewed: Yes Interpretation(s) Laboratory Tests Test 08/23/17 00:45 08/23/17 01:00 Urine Leukocyte Esterase TRACE (NEG) Urine WBC 9-14 /hpf (0-5) Urine WBC Clumps RARE (NONE) Urine Squamous Epithelial Cells 6-8 /hpf (0-5) Urine Bacteria MOD /hpf (NONE) Neutrophils (%) (Auto) 74.2 % (16.0-70.0) Blood Urea Nitrogen 22 MG/DL (7-18) Creatinine 1.10 MG/DL (0.50-1.00) Random Glucose 147 MG/DL (74-106) Estimat Glomerular Filtration Rate 48 ML/MIN (>89) Last 24 hours Impressions Abdomen/Pelvis CT 08/23/17 0018 Signed Impressions: Service Date/Time: Wednesday, August 23, 2017 01:52 - CONCLUSION: Scan appearance similar to prior with nonspecific mild indurative changes and interloop fluid mainly in the right peritoneal cavity and mild nonspecific fluid and gaseous distention of bowel. Scott Mercado MD Differential Diagnosis Nausea, vomiting, abdominal pains: Diverticulitis versus gastroenteritis versus gastritis versus renal colic versus other acute intra-abdominal processes versus obstruction Narrative Course Lab work shows significant UTI. She did have some signs of mild dehydration with increase in BUN/creatinine creatinine. CAT scan was done which did not show any signs of obvious acute processes. There are some nonspecific findings. On reevaluation at 2:30 AM, patient states she feels much improved, had a bowel movement in the ER. I have talked her about findings and have offered to admit her as an observation for further treatment and evaluation but at this time, she states that she feels comfortable enough that she would rather go home. She should return for any worsening in symptoms. Follow-up with primary care doctor. The plan was discussed with her and she states understanding. Diagnosis Primary Impression: Abdominal pain Additional Impression: UTI (lower urinary tract infection) Med/Other Pt SpecificInfo: Prescription(s) given Scripts Ondansetron Odt (Zofran Odt) 4 Mg Tab 4 MG SL Q6HR Y for Nausea/Vomiting, #7 TAB 0 Refills Prov: Thaddeus Butterfield MD 08/23/17 Dicyclomine (Bentyl) 10 Mg Cap 10 MG PO TID Y for Bowel Management, #12 CAP 0 Refills Prov: Thaddeus Butterfield MD 08/23/17 Nitrofurantoin Monohydrate Macrocrystals (Macrobid) 100 Mg Cap 100 MG PO BID for Infection for 7 Days, #14 CAP 0 Refills Prov: Thaddeus Butterfield MD 08/23/17 Disposition: 01 DISCHARGE HOME Condition: Stable Thaddeus Butterfield MD Aug 23, 2017 00:23
[2017-08-23 00:30] VITALS: O2SAT 96
[2017-08-23] MEDS ORDERED: SODIUM CHLORIDE 0.9% FLUSH 10 ML FLUSH IV FLUSH PRN (00:30)
[2017-08-23] MEDS ORDERED: HYDROmorphone HCL PF 1 MG/ML VIAL IVS ONE (00:30)
[2017-08-23] MEDS ORDERED: ONDANSETRON HCL 4 MG/2 ML VIAL IVP ONE (00:30)
[2017-08-23 00:48] LABS: BLOOD, URINE NEG (NEG); GLUCOSE,URINE NEG (NEG); KETONE, URINE NEG (NEG); NITRITE,URINE NEG (NEG)
[2017-08-23 00:55] LABS: URINE COLOR YELLOW (YELLW/STRAW)
[2017-08-23 00:56] LABS: BACTERIA, URINE MOD /hpf; COMMENT (UR) CULTURE INDICATED; CULTURE IF INDICATED CULTURE INDICATED; MUCUS URINE OCC /lpf (OCC)
[2017-08-23 01:30] LABS: EOSINOPHIL # 0.3 TH/MM3 (0-0.4); HEMATOCRIT 43.5 % (35.0-46.0); HEMO FLAGS DIFF FINAL; LYMPH % 16.3 % (9.0-44.0); LYMPHOCYTE # 1.5 TH/MM3 (1.0-4.8); MEAN CELL VOLUME 88.3 FL (80.0-100.0); MEAN CORPUSCULAR HGB CONC 32.8 % (32.0-36.0); MONO % 6.5 % (0.0-8.0); NEUT % 74.2 % (16.0-70.0); PLATELET COUNT 172 TH/MM3 (150-450); RED BLOOD COUNT 4.92 MIL/MM3 (4.00-5.30); RED CELL DISTRIBUTION WIDTH 13.4 % (11.6-17.2); WHITE BLOOD COUNT 9.4 TH/MM3 (4.0-11.0)
[2017-08-23 01:35] LABS: CHLORIDE 100 MEQ/L (98-107); POTASSIUM 3.5 MEQ/L (3.5-5.1); SODIUM (NA) 139 MEQ/L (136-145)
[2017-08-23 01:39] LABS: ANION GAP 9 MEQ/L (5-15); BLOOD UREA NITROGEN 22 MG/DL (7-18)
[2017-08-23 01:42] LABS: ALT (GPT) 27 U/L (10-53); AST (GOT) 34 U/L (15-37); GLOMERULAR FILTRATION RATE 48 ML/MIN (>89)
[2017-08-23 01:44] LABS: TOTAL BILIRUBIN ADULT 0.5 MG/DL (0.2-1.0)
[2017-08-23 01:45] LABS: ALKALINE PHOSPHATASE 101 U/L (45-117)
[2017-08-23] MEDS ORDERED: IOHEXOL 350 MG/ML 10 ML VIAL (for RAD DIAG) IVCONTRAST ONE (02:09)
--- NOTE | 2017-08-23 02:29 | RADRPT ---
EXAM DATE/TIME: 08/23/2017 01:52 [facility] COMPARISON: CTA ABDOMEN & PELVIS W 3D RECON, January 17, 2017, 9:42. CT ABDOMEN & PELVIS W CONTRAST, January 16 7, 3:41. INDICATIONS : Abdominal pain. IV CONTRAST: 75 cc Omnipaque 350 (iohexol) IV ORAL CONTRAST: No oral contrast ingested. RADIATION DOSE: 19.2 CTDIvol (mGy) MEDICAL HISTORY : Diverticulitis. Diabetes mellitus type 2. Gastroesophageal reflux disease.Hypertension. Deep vein thr ombosis. SURGICAL HISTORY : Colon resection. Hysterectomy. ENCOUNTER: Initial ACUITY: 1 day PAIN SCALE: 10/10 LOCATION: Bilateral abdomen TECHNIQUE: Volumetric scanning of the abdomen and pelvis was performed. Using automated exposure control and ad justment of the mA and/or kV according to patient size, radiation dose was kept as low as reasonably achievable to obtain optimal diagnostic quality images. DICOM format image data is available electro nically for review and comparison. FINDINGS: LOWER LUNGS: Mild nodular scarring in the posterolateral right lung base appears basically stable. LIVER: Homogeneous density without lesion. There is no dilation of the biliary tree. Tiny dependent gallsto ne is again noted. SPLEEN: Normal size without lesion. PANCREAS: Within normal limits. KIDNEYS: Right kidney upper pole cyst again noted. ADRENAL GLANDS: Within normal limits. VASCULAR: Atherosclerotic changes. No evidence of major vessel occlusion. No aneurysm. BOWEL/MESENTERY: Mild nonspecific fluid and gaseous distention of stomach and multiple bowel loops. Evidence of extens scott previous surgery with multiple anastomoses. Mild indurative changes in the mesentery, mainly of t he right side of the peritoneal cavity with minimal interloop fluid noted. Appearance is similar thou gh slightly less pronounced than on the prior exam ABDOMINAL WALL: Scarring from previous laparotomies RETROPERITONEUM: There is no lymphadenopathy. BLADDER: No wall thickening or mass. REPRODUCTIVE: Uterus surgically absent. No evidence of pelvic mass or free fluid in the cul-de-sac INGUINAL: There is no lymphadenopathy or hernia. MUSCULOSKELETAL: Stable CONCLUSION: Scan appearance similar to prior with nonspecific mild indurative changes and interloop fluid mainly in the right peritoneal cavity and mild nonspecific fluid and gaseous distention of bowel. Scott Mercado MD on August 23, 2017 at 2:19 Board Certified Radiologist. This report was verified electronically.
[2017-08-23] MEDS ORDERED: DICY10 PO (02:43)
[2017-08-23] MEDS ORDERED: MACR100C2 PO (02:43)
[2017-08-23] MEDS ORDERED: ZOFR4TAB3 SL (02:43)
[2017-08-23 02:55] VITALS: BP 155/67; PULSE 77; RESP 18; O2SAT 95
== END 2017-08-23 02:57 | disposition home or self-care (01) ==
LOC: PHED
DX: N39.0 Urinary tract infection, site not specified (principal); F32.9 Major depressive disorder, single episode, unspecified; F41.9 Anxiety disorder, unspecified; E78.5 Hyperlipidemia, unspecified; E11.9 Type 2 diabetes mellitus without complications; K21.9 Gastro-esophageal reflux disease without esophagitis; I10 Essential (primary) hypertension; Z86.718 Personal history of other venous thrombosis and embolism; Z79.899 Other long term (current) drug therapy
CPT/HCPCS: 74177; 80053; 81001; 83690; 85025; 87077; 87086; 87186; 96374; 96375; 99285; J1170; J2405; Q9967

== ENCOUNTER 2017-09-29 07:41 | Inpatient (IN) | payer OTHER, MEDICARE ==
[~2017-09-29] VITALS: Ht 157.5 cm; Wt 107.0 kg
[2017-09-29] VITALS (9 sets, daily range): BP systolic 128–159; BP diastolic 66–99; PULSE 73–93; RESP 16–19; TEMP 97.4–97.7; O2SAT 92–98
[~2017-09-29 07:41] MED LIST changes: +DICY10 PO; +KLOR10TA PO; +MACR100C2 PO; +METO1TAB9 PO; -METO50TA11 PO; +METR1TAB76 PO; -METR500T10 PO; -POTA-243 PO; +VITA500T35 PO; -VITA500T49 PO; +ZOFR4TAB3 SL
[2017-09-29] MEDS ORDERED: ONDANSETRON HCL 4 MG/2 ML VIAL IVP ONE (08:00)
[2017-09-29] MEDS ORDERED: HYDROmorphone HCL PF 1 MG/ML VIAL IVS ONE (08:00)
--- NOTE | 2017-09-29 08:02 | PD ---
HPI Chief Complaint: GI Complaint Time Seen by Provider: 07:49 Travel History International Travel<30 days: No Contact w/Intl Traveler<30days: No Traveled to known affect area: No History of Present Illness HPI This is a 81-year-old female who presents to the emergency department with 1 week of abdominal discomfort and cough, constant, moderate severity, nonproductive, associated with shortness of breath. She is concerned she may have pneumonia. 2 days ago she started to vomit profusely and she says she has just been living by the toilet and hasn't been able to move because she vomits up everything. She says her abdomen is uncomfortable in the upper abdomen, moderate severity described as a soreness, nonradiating. She has a history of multiple abdominal surgeries. She also says she's had pneumonia twice in one she required fluid drained out of her lungs. She can't recall all of her medical problems and doesn't know any of her medications. PFSH Past Medical History Arthritis: Yes Asthma: No Autoimmune Disease: No Blood Disorders: Yes Anxiety: Yes Depression: Yes Heart Rhythm Problems: No Cancer: No Cardiovascular Problems: No High Cholesterol: Yes Chemotherapy: No Chest Pain: No Congestive Heart Failure: No COPD: No Cerebrovascular Accident: No Diabetes: Yes Diminished Hearing: No Diverticulitis: Yes Deep Vein Thrombosis: Yes Endocrine: Yes Gastrointestinal Disorders: Yes (reflux diaherra) GERD: Yes Genitourinary: Yes Hepatitis: No Hiatal Hernia: No Hypertension: Yes Immune Disorder: No Implanted Vascular Access Dvce: No Kidney Stones: Yes Musculoskeletal: Yes (arthritis , low back pain) Neurologic: Yes Psychiatric: Yes (anxiety depression) Reproductive: No Respiratory: Yes (COPD) Immunizations Current: No Migraines: No Myocardial Infarction: No Pneumonia: Yes Radiation Therapy: No Renal Failure: No Seizures: No Sleep Apnea: No Thyroid Disease: Yes Ulcer: Yes Influenza Vaccination: Yes PNEUMOCCOCAL Vaccine (Year): 1 ?: Not Menopausal: Yes Past Surgical History Abdominal Surgery: Yes (partial colon resection) AICD: No Appendectomy: No Arteriovenous Shunt: No Cardiac Surgery: No Cholecystectomy: No Ear Surgery: No Endocrine Surgery: No Eye Surgery: Yes (mervat cataract surgery) Genitourinary Surgery: Yes (OR FOR DIVERTICULITIS; PERHAPS A PARTILAL COLECTOMY ) Gynecologic Surgery: Yes (HYSTERECTOMY) Hysterectomy: Yes Insulin Pump: No Joint Replacement: No Oral Surgery: No Pacemaker: No Thoracic Surgery: No Other Surgery: Yes (GASTRIC BYPASS WITH REVERSAL 30 YEARS AGO) Family History Family Hypercholesterolemia: Yes Social History Alcohol Use: Yes (social) Tobacco Use: No Substance Use: No Allergies-Medications (Allergen,Severity, Reaction): Coded Allergies: codeine (Unverified Adverse Reaction, Severe, Nausea/Vomiting, 09/29/17) NAUSEA/VOMITING Reported Meds & Prescriptions Reported Meds & Active Scripts Active Reported Pepto-Bismol Liq (Bismuth Subsalicylate) 262 Mg/15 Ml Susp 30 Ml PO PRN Do not exceed 8 doses (240 mL or 16 tbsp) in 24 hours. Metoprolol Succinate ER 24 HR (Metoprolol Succinate) 50 Mg Tab 50 Mg PO DAILY Levoxyl (Levothyroxine Sodium) 50 Mcg Tab 50 Mcg PO DAILY Lasix (Furosemide) 20 Mg Tab 20 Mg PO DAILY Vasotec (Enalapril Maleate) 10 Mg Tab 10 Mg PO BID Vitamin B12 (Cyanocobalamin) 500 Mcg Tab 500 Mcg PO DAILY Vitamin D (Cholecalciferol) 2,000 Unit Tab Norvasc (Amlodipine Besylate) 10 Mg Tab 10 Mg PO DAILY Zoloft (Sertraline HCl) 25 Mg Tab 25 Mg PO DAILY Pravastatin 80 Mg Tab 80 Mg PO DAILY Klor-Con 10 (Potassium Chloride) 10 Meq Tab 10 Meq PO DAILY Protonix (Pantoprazole Sodium) 40 Mg Tab 40 Mg PO DAILY Review of Systems Except as stated in HPI: all other systems reviewed are Neg Physical Exam Narrative GENERAL:Well appearing, no acute distress SKIN: Dry with skin tenting. HEAD: Atraumatic. Normocephalic. EYES: Pupils equal and round. No injection or drainage. ENT: Moist mucous membranes NECK: Trachea midline. CARDIOVASCULAR: Regular rate and rhythm. No murmur appreciated. RESPIRATORY: Coarse breath sounds bilaterally with some wheezing in the upper lobes GASTROINTESTINAL: Abdomen soft, multiple surgical scars on the abdomen. Diffusely tender with guarding MUSCULOSKELETAL: No obvious deformities. NEUROLOGICAL: Awake and alert. No obvious cranial nerve deficits. Moving all extremities. PSYCHIATRIC: Appropriate mood and affect; insight and judgment normal. Data Data Last Documented VS Vital Signs Date Time Temp Pulse Resp B/P (MAP) Pulse Ox O2 Delivery O2 Flow Rate FiO2 09/29/17 10:24 78 18 149/69 (95) 98 Nasal Cannula 2.00 09/29/17 07:46 97.6 Orders Orders Complete Blood Count With Diff (09/29/17 07:59) Comprehensive Metabolic Panel (09/29/17 07:59) Lipase (09/29/17 07:59) Urinalysis - C+S If Indicated (09/29/17 07:59) Iv Access Insert/Monitor (09/29/17 07:59) Ecg Monitoring (09/29/17 07:59) Oximetry (09/29/17 07:59) Ondansetron Inj (Zofran Inj) (09/29/17 08:00) Sodium Chloride 0.9% Flush (Ns Flush) (09/29/17 08:00) Chest, Single Ap (09/29/17 07:59) Hydromorphone Pf Inj (Dilaudid Pf Inj) (09/29/17 08:00) B-Type Natriuretic Peptide (09/29/17 07:59) Ct Abd/Pel W/O Iv Contrast (09/29/17 ) Methylprednisolone So Succ Inj (Solumedr (09/29/17 09:15) Albuterol-Ipratropium Neb (Duoneb Neb) (09/29/17 09:15) Sodium Chlor 0.9% 1000 Ml Inj (Ns 1000 M (09/29/17 09:30) Urine Culture (09/29/17 10:30) Ciprofloxacin 400 Mg Premix (Cipro 400 M (09/29/17 11:00) Metronidazole 500 Mg Inj (Flagyl 500 Mg (09/29/17 11:00) Lactic Acid (09/29/17 10:53) Admit Order (Ed Use Only) (09/29/17 11:06) Labs Laboratory Tests Test 09/29/17 08:10 09/29/17 10:30 09/29/17 11:00 White Blood Count 12.2 TH/MM3 Red Blood Count 5.36 MIL/MM3 Hemoglobin 15.3 GM/DL Hematocrit 47.2 % Mean Corpuscular Volume 88.0 FL Mean Corpuscular Hemoglobin 28.6 PG Mean Corpuscular Hemoglobin Concent 32.5 % Red Cell Distribution Width 13.4 % Platelet Count 323 TH/MM3 Mean Platelet Volume 7.7 FL Neutrophils (%) (Auto) 73.8 % Lymphocytes (%) (Auto) 11.2 % Monocytes (%) (Auto) 9.8 % Eosinophils (%) (Auto) 0.5 % Basophils (%) (Auto) 4.7 % Neutrophils # (Auto) 8.9 TH/MM3 Lymphocytes # (Auto) 1.4 TH/MM3 Monocytes # (Auto) 1.2 TH/MM3 Eosinophils # (Auto) 0.1 TH/MM3 Basophils # (Auto) 0.6 TH/MM3 CBC Comment DIFF FINAL Differential Comment Blood Urea Nitrogen 41 MG/DL Creatinine 1.60 MG/DL Random Glucose 156 MG/DL Total Protein 7.7 GM/DL Albumin 3.8 GM/DL Calcium Level 9.0 MG/DL Alkaline Phosphatase 107 U/L Aspartate Amino Transf (AST/SGOT) 20 U/L Alanine Aminotransferase (ALT/SGPT) 27 U/L Total Bilirubin 0.5 MG/DL Sodium Level 135 MEQ/L Potassium Level 4.4 MEQ/L Chloride Level 92 MEQ/L Carbon Dioxide Level 29.5 MEQ/L Anion Gap 14 MEQ/L Estimat Glomerular Filtration Rate 31 ML/MIN B-Type Natriuretic Peptide 49 PG/ML Lipase 107 U/L Urine Collection Type CLEAN CATCH Urine Color YELLOW Urine Turbidity CLEAR Urine pH 5.5 Urine Specific [place] 1.025 Urine Protein TRACE mg/dL Urine Glucose (UA) NEG mg/dL Urine Ketones NEG mg/dL Urine Occult Blood NEG Urine Nitrite NEG Urine Bilirubin NEG Urine Leukocyte Esterase NEG Urine RBC 0-3 /hpf Urine WBC 0-2 /hpf Urine Squamous Epithelial Cells 0-5 /hpf Urine Bacteria MANY /hpf Microscopic Urinalysis Comment CULTURE INDICATED Urine Collection Time 10:30 Lactic Acid Level 2.6 mmol/L [facility] Medical Decision Making Medical Screen Exam Complete: Yes Emergency Medical Condition: Yes Interpretation(s) Afebrile, mild tachycardia, normotensive Mild leukocytosis Hemoconcentration Renal insufficiency Lactic acid is 2.6 BNP is 49 Urinalysis demonstrates bacteria Last 24 hours Impressions Chest X-Ray 09/29/17 0759 Signed Impressions: Service Date/Time: Friday, September 29, 2017 08:29 - CONCLUSION: No acute cardiopulmonary process. Possible chronic rotator cuff injury on the right. Wilmer Hoover MD Abdomen/Pelvis CT 09/29/17 0000 Signed Impressions: Service Date/Time: Friday, September 29, 2017 08:46 - CONCLUSION: Persistent mesenteric induration in the mesentery with trace fluid and gallstones. This is very similar to what was seen on 08/23/2017. Matteo Plunkett MD FACR Differential Diagnosis Bowel obstruction, diverticulitis, colitis, mesenteric adenitis, dehydration Narrative Course This is a 81-year-old female who presents to the emergency department with abdominal pain, nausea and vomiting that's been going on for 2 weeks. She says she can't keep anything down. She's also felt short of breath. She has evidence of wheezing on exam consistent with COPD. She was given serial bronchodilator treatments and steroids in the emergency department. Labs demonstrate a mild leukocytosis and she has evidence of dehydration with an elevated BUN creatinine ratio and a lactic acid of 2.6. CT abdomen and pelvis demonstrates induration of the mesentery which has been seen before. She was hospitalized for this back in January. Dr. Lam and Dr. Najera were following her and managed her with antibiotic therapy and IV fluids. She seemed to improve. She evidently has a very complicated abdomen is had multiple surgical procedures in the past. This seems to be a cyclic issue that she has. She has had a workup for mesenteric ischemia in the past which was reassuring. I think it's reasonable to place her in observation for continued IV hydration and pain control. Diagnosis Primary Impression: Vomiting Qualified Codes: R11.2 - Nausea with vomiting, unspecified Admitting Information Admitting Physician Requests: Observation Aby Almazan MD Sep 29, 2017 08:02
[2017-09-29] MEDS: SODIUM CHLORIDE 0.9% FLUSH 10 ML FLUSH IV FLUSH PRN ×2 (08:23→09:16)
[2017-09-29 08:24] LABS: AUTOMATED NEUTROPHIL # 8.9 TH/MM3 (1.8-7.7); BASOPHIL # 0.6 TH/MM3 (0-0.2); BASOPHIL % 4.7 % (0.0-2.0); EOSINOPHIL # 0.1 TH/MM3 (0-0.4); EOSINOPHIL % 0.5 % (0.0-4.0); HEMATOCRIT 47.2 % (35.0-46.0); LYMPH % 11.2 % (9.0-44.0); LYMPHOCYTE # 1.4 TH/MM3 (1.0-4.8); MEAN CORPUSCULAR HEMOGLOBIN 28.6 PG (27.0-34.0); MEAN CORPUSCULAR HGB CONC 32.5 % (32.0-36.0); MONO % 9.8 % (0.0-8.0); NEUT % 73.8 % (16.0-70.0); PLATELET COUNT 323 TH/MM3 (150-450); RED BLOOD COUNT 5.36 MIL/MM3 (4.00-5.30); RED CELL DISTRIBUTION WIDTH 13.4 % (11.6-17.2); WHITE BLOOD COUNT 12.2 TH/MM3 (4.0-11.0)
[2017-09-29 08:25] LABS: HEMO FLAGS DIFF FINAL
[2017-09-29 08:34] LABS: CHLORIDE 92 MEQ/L (98-107); POTASSIUM 4.4 MEQ/L (3.5-5.1); SODIUM (NA) 135 MEQ/L (136-145)
[2017-09-29 08:38] LABS: ANION GAP 14 MEQ/L (5-15); BICARBONATE 29.5 MEQ/L (21.0-32.0); BLOOD UREA NITROGEN 41 MG/DL (7-18)
[2017-09-29 08:41] LABS: ALT (GPT) 27 U/L (10-53); AST (GOT) 20 U/L (15-37); GLOMERULAR FILTRATION RATE 31 ML/MIN (>89)
[2017-09-29 08:42] LABS: TOTAL BILIRUBIN ADULT 0.5 MG/DL (0.2-1.0)
[2017-09-29 08:43] LABS: ALKALINE PHOSPHATASE 107 U/L (45-117)
--- NOTE | 2017-09-29 09:07 | RADRPT ---
EXAM DATE/TIME: 09/29/2017 08:29 [facility] COMPARISON: CHEST SINGLE AP, January 16, 2017, 3:07. INDICATIONS : Short of breath. MEDICAL HISTORY : Diverticulitis. Diabetes mellitus type 2. Gastroesophageal reflux disease.Hypertension.Deep vein thro mbosis. SURGICAL HISTORY : Colon resection. Hysterectomy ENCOUNTER: Initial ACUITY: 1 week PAIN SCORE: 7/10 LOCATION: Bilateral epigastric FINDINGS: A single view of the chest demonstrates the lungs to be symmetrically aerated without evidence of mas s, infiltrate or effusion. The cardiomediastinal contours are unremarkable. Sideplat osseous screws secure an old left proximal humeral diaphyseal fracture. The right shoulder is "high riding" characte ristic of a chronic rotator cuff injury. Degenerative spurring of the dorsal spine. Osseous structure s are otherwise intact.. CONCLUSION: No acute cardiopulmonary process. Possible chronic rotator cuff injury on the right. Wilmer Hoover MD on September 29, 2017 at 8:57 Board Certified Radiologist. This report was verified electronically.
[2017-09-29] MEDS ORDERED: methylPREDNISolone SOD SUCC 125 MG/2 ML VIAL IV PUSH ONE (09:15)
--- NOTE | 2017-09-29 09:18 | RADRPT ---
EXAM DATE/TIME: 09/29/2017 08:46 [place] COMPARISON: CT ABDOMEN & PELVIS W/O CONTRAST, September 25, 2014, 17:16. INDICATIONS : Upper abdominal pain x 1 week. Vomiting x 2 days. ORAL CONTRAST: No oral contrast ingested. RADIATION DOSE: 16.96 CTDIvol (mGy) MEDICAL HISTORY : Chronic obstructive pulmonary disease. Deep venous thrombosis. Gastroesophageal reflux disease.Diabet es. Diverticulitis. Renal stones. SURGICAL HISTORY : Colon resection. Gastric bypass with reversal. ENCOUNTER: Initial ACUITY: 1 week PAIN SCALE: 7/10 LOCATION: Bilateral upper quadrant TECHNIQUE: Volumetric scanning of the abdomen and pelvis was performed. Using automated exposure control and ad justment of the mA and/or kV according to patient size, radiation dose was kept as low as reasonably achievable to obtain optimal diagnostic quality images. DICOM format image data is available electro nically for review and comparison. FINDINGS: LOWER LUNGS: Significant improvement with minimal residual parenchymal changes on the right. LIVER: Gallstones are noted. The liver is free of focal defects. Persistent induration is seen adjacent to the edge of the liver associated with the colon and surgical clips. There is no abscess. SPLEEN: Normal size without lesion. PANCREAS: There is no evidence for pancreatitis. KIDNEYS: Stable right renal cyst. There are no stones. ADRENAL GLANDS: Within normal limits. VASCULAR: Minimal calcifications are evident. BOWEL/MESENTERY: Induration right upper quadrant as described above without free air or focal abscess. Trace fluid is evident. In the mesentery. ABDOMINAL WALL: Postsurgical changes. RETROPERITONEUM: There is no lymphadenopathy. BLADDER: No wall thickening or mass. REPRODUCTIVE: Within normal limits. INGUINAL: There is no lymphadenopathy or hernia. MUSCULOSKELETAL: Mild degenerative changes. CONCLUSION: Persistent mesenteric induration in the mesentery with trace fluid and gallstones. This is very nathaniel lar to what was seen on 08/23/2017. Matteo Plunkett MD FACR on September 29, 2017 at 9:11 Board Certified Radiologist. This report was verified electronically.
[2017-09-29] MEDS: RESP: ALBUTEROL 2.5 MG/IPRATROPIUM 0.5 MG NEB (SCH) INH ×2 (09:23→09:24)
[2017-09-29] MEDS ORDERED: SODIUM CHLOR 0.9% 1000 ML INJ 1,000 ML IV ONE (09:30)
[2017-09-29 10:38] LABS: BLOOD, URINE NEG (NEG); GLUCOSE,URINE NEG (NEG); KETONE, URINE NEG (NEG); NITRITE,URINE NEG (NEG); PH, URINE 5.5 (5.0-8.5)
[2017-09-29 10:48] LABS: METHOD OF COLLECTION CLEAN CATCH; URINE COLOR YELLOW (YELLW/STRAW)
[2017-09-29 10:49] LABS: BACTERIA, URINE MANY /hpf; COMMENT (UR) CULTURE INDICATED; CULTURE IF INDICATED CULTURE INDICATED; RBC, URINE 0-3 /hpf (0-3); SQUAMOUS EPITHELIAL CELL URINE 0-5 /hpf (0-5); WBC, URINE 0-2 /hpf (0-5)
[2017-09-29] MEDS ORDERED: CIPROFLOXACIN 400 MG PREMIX 200 ML IV ONE (11:00)
[2017-09-29] MEDS ORDERED: metroNIDAZOLE 500 MG INJ 100 ML IV ONE (11:00)
[2017-09-29] MEDS ORDERED: METOCLOPRAMIDE HCL 10 MG/2 ML VIAL IV PUSH PRN (11:15)
[2017-09-29] MEDS ORDERED: SENNOSIDES 8.6 MG TAB PO PRN (11:15)
[2017-09-29] MEDS ORDERED: NALOXONE HCL 0.4 MG/ML AMP IV PUSH PRN (11:15)
[2017-09-29] MEDS ORDERED: SODIUM CHLORIDE 0.9% FLUSH 10 ML FLUSH IV FLUSH PRN (11:15)
[2017-09-29] MEDS ORDERED: ACETAMINOPHEN/HYDROcodone 325 MG/5 MG TAB PO PRN (11:15)
[2017-09-29] MEDS ORDERED: ONDANSETRON HCL 4 MG/2 ML VIAL IVP PRN (11:15)
[2017-09-29] MEDS ORDERED: MAGNESIUM HYDROXIDE SUSP 30 ML CUP PO PRN (11:15)
[2017-09-29] MEDS ORDERED: LACTULOSE SYRUP 20 GM/30 ML CUP PO PRN (11:15)
[2017-09-29] MEDS ORDERED: BISACODYL 10 MG SUPP RECTAL PRN (11:15)
[2017-09-29] MEDS: SODIUM CHLOR 0.9% 1000 ML INJ 1,000 ML IV SCH ×2 (12:00→21:05)
[2017-09-29] MEDS: MORPHINE SULFATE 2 MG/ML INJ IV PUSH PRN ×2 (14:01→17:25)
--- NOTE | 2017-09-29 14:51 | HHI.HP ---
[facility] Primary Care Physician Mason Moreno Do, MD Admission Diagnosis dehydration, vomiting Diagnoses: (1) HONEY (acute kidney injury) (2) Vomiting (3) Dehydration (4) Lactic acid acidosis (5) Weakness (6) Bronchitis Travel History International Travel<30 Days: No Contact w/Intl Traveler <30 Da: No Traveled to Known Affected Are: No History of Present Illness This is a pleasant 81 year-old female with past medical history of hypertension, chronic abdominal pain, previous partial colectomy with colostomy reversal, ventral abdominal hernia repair who presented to the ER with 3 days of vomiting. History obtained from the patient and her at bedside. Over the past 2 weeks she has had a nagging cough which is been quite severe. She was having some posttussive emesis with that. 3 days ago the vomiting started to become severe. Yesterday and today she was having intractable vomiting. The patient also has chronic periumbilical abdominal pain which is unchanged. Last bowel movement yesterday and was formed. The patient denies any fevers or chills although she states she was feeling cold. Apparently she had minimal diarrhea last week but that has resolved. No sick contacts however her also became ill with the same symptoms of cough. The patient denies shortness of breath except for some chronic mild exertional dyspnea. Patient normally ambulates with a walker and reports feeling fatigued. The cough is productive of clear sputum. Patient presents emergency department for evaluation of the symptoms. Abdominal CT scan showed some mesenteric induration in the right upper quadrant which is very similar to previous CT last month. Review the records shows she's had intermittent episodes of abdominal pain which resolved with conservative care. Patient states that she no longer sees Dr. Lam. Review of Systems Constitutional: COMPLAINS OF: Fatigue, DENIES: Fever, Chills Eyes: DENIES: Blurred vision, Diplopia Ears, nose, mouth, throat: DENIES: Throat pain, Odynophagia Respiratory: COMPLAINS OF: Cough, Shortness of breath, DENIES: Wheezing Cardiovascular: DENIES: Chest pain, Palpitations Gastrointestinal: COMPLAINS OF: Abdominal pain, Nausea, Vomiting, DENIES: Black stools, Bloody stools Genitourinary: DENIES: Urinary frequency, Dysuria Integumentary: DENIES: Pruritus, Rash Hematologic/lymphatic: DENIES: Lymphadenopathy Neurologic: DENIES: Abnormal gait, Headache Psychiatric: DENIES: Anxiety, Confusion Past Family Social History Past Medical History Hypertension Diverticulitis status post partial colectomy Previous type 2 diabetes which resolved Obesity History of hypothyroidism Anxiety and depression Cholelithiasis Hyperlipidemia History of pericardial effusion with tamponade in 2014 Pneumonia 2 Fracture of left humerus Past Surgical History Partial colectomy with colostomy reversal, ventral abdominal hernia repair, left humerus open reduction internal fixation, pericardial drain, hysterectomy, left eye surgery, thoracentesis 2, SPARC sling Reported Medications Allergies Coded Allergies Type Severity Reaction Last Updated Verified codeine Adverse Reaction Severe Nausea/Vomiting 09/29/17 No Active Scripts Medications Dose Route/Sig Max Daily Dose Days Date Category Dose Instructions Pepto-Bismol Liq (Bismuth Subsalicylate) 262 Mg/15 Ml Susp 30 Ml PO PRN 01/16/17 Reported Do not exceed 8 doses (240 mL or 16 tbsp) in 24 hours. Metoprolol Succinate ER 24 HR (Metoprolol Succinate) 50 Mg Tab 50 Mg PO DAILY 01/16/17 Reported Levoxyl (Levothyroxine Sodium) 50 Mcg Tab 50 Mcg PO DAILY 01/16/17 Reported Lasix (Furosemide) 20 Mg Tab 20 Mg PO DAILY 01/16/17 Reported Vasotec (Enalapril Maleate) 10 Mg Tab 10 Mg PO BID 01/16/17 Reported Vitamin B12 (Cyanocobalamin) 500 Mcg Tab 500 Mcg PO DAILY 01/16/17 Reported Vitamin D (Cholecalciferol) 2,000 Unit Tab 01/16/17 Reported Norvasc (Amlodipine Besylate) 10 Mg Tab 10 Mg PO DAILY 01/16/17 Reported Zoloft (Sertraline HCl) 25 Mg Tab 25 Mg PO DAILY 01/16/17 Reported Pravastatin 80 Mg Tab 80 Mg PO DAILY 01/16/17 Reported Klor-Con 10 (Potassium Chloride) 10 Meq Tab 10 Meq PO DAILY 01/16/17 Reported Protonix (Pantoprazole Sodium) 40 Mg Tab 40 Mg PO DAILY 01/16/17 Reported Allergies: Coded Allergies: codeine (Unverified Adverse Reaction, Severe, Nausea/Vomiting, 09/29/17) NAUSEA/VOMITING Family History Reviewed and noncontributory Social History No tobacco history Physical Exam Vital Signs Vital Signs Date Time Temp Pulse Resp B/P (MAP) Pulse Ox O2 Delivery O2 Flow Rate FiO2 09/29/17 14:00 97.4 73 16 149/66 (93) 98 09/29/17 13:36 09/29/17 12:08 73 18 159/70 (99) 97 Nasal Cannula 2.00 09/29/17 10:24 78 18 149/69 (95) 98 Nasal Cannula 2.00 09/29/17 09:05 98 Nasal Cannula 2.00 09/29/17 09:04 75 18 138/71 (93) 92 Room Air 09/29/17 09:03 18 09/29/17 08:19 85 18 141/99 (113) 95 Room Air 09/29/17 07:51 128/72 (90) 09/29/17 07:46 97.6 93 16 96 Physical Exam GENERAL: This is a well-nourished, well-developed pleasant obese female patient, in no apparent distress. SKIN: No rashes, ecchymoses or lesions. Cool and dry. HEAD: Atraumatic. Normocephalic. EYES: Pupils equal round and reactive. Extraocular motions intact. No scleral icterus. No injection or drainage. NECK: Trachea midline. No JVD or lymphadenopathy. CARDIOVASCULAR: Regular rate and rhythm without murmurs, gallops, or rubs. RESPIRATORY: Clear to auscultation. Breath sounds equal bilaterally. No wheezes , rales, or rhonchi. GASTROINTESTINAL: Abdomen soft, non-tender, nondistended. Previous surgical scars. No hepato-splenomegaly, or palpable masses. No guarding. MUSCULOSKELETAL: Extremities without clubbing, cyanosis, or edema. NEUROLOGICAL: Awake and alert and oriented. Motor and sensory grossly within normal limits. Normal speech. Laboratory Laboratory Tests Test 09/29/17 08:10 09/29/17 10:30 09/29/17 11:00 White Blood Count 12.2 Red Blood Count 5.36 Hemoglobin 15.3 Hematocrit 47.2 Mean Corpuscular Volume 88.0 Mean Corpuscular Hemoglobin 28.6 Mean Corpuscular Hemoglobin Concent 32.5 Red Cell Distribution Width 13.4 Platelet Count 323 Mean Platelet Volume 7.7 Neutrophils (%) (Auto) 73.8 Lymphocytes (%) (Auto) 11.2 Monocytes (%) (Auto) 9.8 Eosinophils (%) (Auto) 0.5 Basophils (%) (Auto) 4.7 Neutrophils # (Auto) 8.9 Lymphocytes # (Auto) 1.4 Monocytes # (Auto) 1.2 Eosinophils # (Auto) 0.1 Basophils # (Auto) 0.6 CBC Comment DIFF FINAL Differential Comment Blood Urea Nitrogen 41 Creatinine 1.60 Random Glucose 156 Total Protein 7.7 Albumin 3.8 Calcium Level 9.0 Alkaline Phosphatase 107 Aspartate Amino Transf (AST/SGOT) 20 Alanine Aminotransferase (ALT/SGPT) 27 Total Bilirubin 0.5 Sodium Level 135 Potassium Level 4.4 Chloride Level 92 Carbon Dioxide Level 29.5 Anion Gap 14 Estimat Glomerular Filtration Rate 31 B-Type Natriuretic Peptide 49 Lipase 107 Urine Collection Type CLEAN CATCH Urine Color YELLOW Urine Turbidity CLEAR Urine pH 5.5 Urine Specific [place] 1.025 Urine Protein TRACE Urine Glucose (UA) NEG Urine Ketones NEG Urine Occult Blood NEG Urine Nitrite NEG Urine Bilirubin NEG Urine Leukocyte Esterase NEG Urine RBC 0-3 Urine WBC 0-2 Urine Squamous Epithelial Cells 0-5 Urine Bacteria MANY Microscopic Urinalysis Comment CULTURE INDICATED Urine Collection Time 10:30 Lactic Acid Level 2.6 Date/Time Source Procedure Growth Status 09/29/17 10:30 Urine Clean Catch Urine Culture Pending Received Result Diagram: 09/29/17 0810 09/29/17 0810 Imaging Last Impressions Chest X-Ray 09/29/17 0759 Signed Impressions: Service Date/Time: Friday, September 29, 2017 08:29 - CONCLUSION: No acute cardiopulmonary process. Possible chronic rotator cuff injury on the right. Wilmer Hoover MD Abdomen/Pelvis CT 09/29/17 0000 Signed Impressions: Service Date/Time: Friday, September 29, 2017 08:46 - CONCLUSION: Persistent mesenteric induration in the mesentery with trace fluid and gallstones. This is very similar to what was seen on 08/23/2017. Matteo Plunkett MD FACR Caprini VTE Risk Assessment Caprini VTE Risk Assessment: Mod/High Risk (score >= 2) Caprini Risk Assessment Model Point Value = 1 Point Value = 2 Point Value = 3 Point Value = 5 Age 41-60 Minor surgery BMI > 25 kg/m2 Swollen legs Varicose veins or History of unexplained or recurrent spontaneous Oral contraceptives or hormone replacement Sepsis (< 1 month) Serious lung disease, including pneumonia (< 1 month) Abnormal pulmonary function Acute myocardial infarction Congestive heart failure (< 1 month) History of inflammatory bowel disease Medical patient at bed rest Age 61-74 Arthroscopic surgery Major open surgery (> 45 min) Laparoscopic surgery (> 45 min) Malignancy Confined to bed (> 72 hours) Immobilizing plaster cast Central venous access Age >= 75 History of VTE Family history of VTE Factor V Leiden Prothrombin [id number] Lupus anticoagulant Anticardiolipin antibodies Elevated serum homocysteine Heparin-induced thrombocytopenia Other congenital or acquired thrombophilia Stroke (< 1 month) Elective arthroplasty Hip, pelvis, or leg fracture Acute spinal cord injury (< 1 month) Prophylaxis Regimen Total Risk Factor Score Risk Level Prophylaxis Regimen 0-1 Low Early ambulation 2 Moderate Order ONE of the following: *Sequential Compression Device (SCD) *Heparin 5000 units SQ BID 3-4 Higher Order ONE of the following medications: *Heparin 5000 units SQ TID *Enoxaparin/Lovenox 40 mg SQ daily (WT < 150 kg, CrCl > 30 mL/min) *Enoxaparin/Lovenox 30 mg SQ daily (WT < 150 kg, CrCl > 10-29 mL/min) *Enoxaparin/Lovenox 30 mg SQ BID (WT < 150 kg, CrCl > 30 mL/min) AND/OR *Sequential Compression Device (SCD) 5 or more Highest Order ONE of the following medications: *Heparin 5000 units SQ TID (Preferred with Epidurals) *Enoxaparin/Lovenox 40 mg SQ daily (WT < 150 kg, CrCl > 30 mL/min) *Enoxaparin/Lovenox 30 mg SQ daily (WT < 150 kg, CrCl > 10-29 mL/min) *Enoxaparin/Lovenox 30 mg SQ BID (WT < 150 kg, CrCl > 30 mL/min) AND *Sequential Compression Device (SCD) Assessment and Plan Assessment and Plan -Intractable vomiting which appears to be mostly posttussive. Abdominal CT scan reviewed showed mesenteric induration in the right upper quadrant which is essentially the same as previous abdominal CT scan last month. Patient has known history of chronic abdominal pain which is unchanged. Patient has been ill with a cough over the past 2 weeks. Chest x-rays negative. Patient has no history of COPD. She is quite dehydrated will treat with IV fluids, anti- medics as needed. Clear liquid diet for now. Start her on cough medicine. Low -dose Solu-Medrol to help with bronchitis. -Acute kidney injury secondary to dehydration. She has mild lactic acidosis secondary to this. Continue IV fluids repeat BMP in the morning. Repeat lactic acid to ensure it is clearing. -Abnormal UA. She has no symptoms of UTI. Will treat with Cipro pending urine culture. -Hypertension - will continue her home medications except for the LINN inhibitor. Metoprolol, Norvasc. -Hypothyroidism - continue Synthroid -Depression - continue Zoloft -DVT prophylaxis with SCDs. Problem Qualifiers (1) Vomiting: Qualified Codes: R11.2 - Nausea with vomiting, unspecified Smita Roman MD Sep 29, 2017 14:51
[2017-09-29] MEDS ORDERED: guaiFENesin SOLUTION 200 MG/10 ML CUP PO PRN (15:15)
[2017-09-29] MEDS: BENZONATATE 100 MG CAP PO SCH (17:22)
[2017-09-29] MEDS: metroNIDAZOLE 500 MG INJ 100 ML IV SCH (20:12)
[2017-09-29] MEDS: SODIUM CHLORIDE 0.9% FLUSH 10 ML FLUSH IV FLUSH SCH (20:12)
[2017-09-29] MEDS ORDERED: diphenhydrAMINE HCL 25 MG CAP PO SCH (21:00)
[2017-09-29] MEDS ORDERED: ALPRAZolam 0.5 MG TAB PO ONE (23:15)
[2017-09-30] VITALS: BP 138/79; PULSE 88; RESP 18; TEMP 98; O2SAT 97
[2017-09-30] MEDS: MORPHINE SULFATE 2 MG/ML INJ IV PUSH PRN (01:19)
[2017-09-30] MEDS: metroNIDAZOLE 500 MG INJ 100 ML IV SCH ×2 (05:14→12:21)
[2017-09-30] MEDS ORDERED: LEVOTHYROXINE SODIUM 50 MCG TAB PO SCH (06:00)
[2017-09-30 06:51] LABS: AUTOMATED NEUTROPHIL # 8.6 TH/MM3 (1.8-7.7); EOSINOPHIL % 0.2 % (0.0-4.0); HEMO FLAGS DIFF FINAL; LYMPH % 6.5 % (9.0-44.0); LYMPHOCYTE # 0.6 TH/MM3 (1.0-4.8); MEAN CORPUSCULAR HEMOGLOBIN 30.5 PG (27.0-34.0); NEUT % 88.3 % (16.0-70.0); PLATELET COUNT 177 TH/MM3 (150-450); RED BLOOD COUNT 3.89 MIL/MM3 (4.00-5.30); WHITE BLOOD COUNT 9.7 TH/MM3 (4.0-11.0)
[2017-09-30 07:20] LABS: BICARBONATE 28.5 MEQ/L (21.0-32.0); POTASSIUM 5.1 MEQ/L (3.5-5.1)
[2017-09-30 08:00] VITALS: BP 162/85; PULSE 72; RESP 16; TEMP 96.9; O2SAT 95
[2017-09-30] MEDS ORDERED: PRAVASTATIN SOD 80 MG TAB PO SCH (09:00)
[2017-09-30] MEDS ORDERED: PANTOPRAZOLE SOD 40 MG DELAYED RELEASE TAB PO SCH (09:00)
[2017-09-30] MEDS ORDERED: POTASSIUM CHLORIDE 10 MEQ CONTROLLED RELEASE TAB PO SCH (09:00)
[2017-09-30] MEDS ORDERED: METOPROLOL SUCCINATE 50 MG EXTENDED RELEASE TAB PO SCH (09:00)
[2017-09-30] MEDS ORDERED: methylPREDNISolone SOD SUCC 40 MG/1 ML VIAL IV PUSH SCH (09:00)
[2017-09-30] MEDS ORDERED: CYANOCOBALAMIN 100 MCG TAB PO SCH (09:00)
[2017-09-30] MEDS ORDERED: SERTRALINE HCL 50 MG TAB PO SCH (09:00)
[2017-09-30] MEDS ORDERED: FUROSEMIDE 20 MG TAB PO SCH (09:00)
[2017-09-30] MEDS: BENZONATATE 100 MG CAP PO SCH ×2 (09:17→12:20)
[2017-09-30] MEDS: SODIUM CHLOR 0.9% 1000 ML INJ 1,000 ML IV SCH (09:22)
[2017-09-30] MEDS: SODIUM CHLORIDE 0.9% FLUSH 10 ML FLUSH IV FLUSH SCH (09:23)
--- NOTE | 2017-09-30 10:54 | HHI.PR ---
Subjective Remarks Patient states that she feels much improved today. She states she has not had any further vomiting. She's tolerated liquid diet and wants to try a regular diet. Patient has some chronic periumbilical abdominal pain which is not worse than baseline. Patient states that she has not really noticed that she is still coughing. at bedside is in concordant. Patient would like to try to go home this afternoon if she tolerates regular diet. Objective Vitals Vital Signs Date Time Temp Pulse Resp B/P (MAP) Pulse Ox O2 Delivery O2 Flow Rate FiO2 09/30/17 08:00 96.9 72 16 162/85 (110) 95 09/30/17 00:00 98.0 88 18 138/79 (98) 97 09/29/17 20:00 97.7 91 19 140/72 (94) 96 09/29/17 17:30 18 09/29/17 16:00 97.6 77 16 144/67 (92) 95 09/29/17 14:00 97.4 73 16 149/66 (93) 98 09/29/17 13:36 09/29/17 12:08 73 18 159/70 (99) 97 Nasal Cannula 2.00 I/O 09/29/17 09/29/17 09/29/17 09/30/17 09/30/17 09/30/17 07:00 15:00 23:00 07:00 15:00 23:00 Intake Total 1300 ml 2280 ml 600 ml Balance 1300 ml 2280 ml 600 ml Intake Oral 980 ml IV Total 1300 ml 1300 ml 600 ml # Voids 1 0 2 Result Diagram: 09/30/1751909/30/17519 Objective Remarks GENERAL: This is a well-nourished, well-developed pleasant obese female patient, in no apparent distress. SKIN: No rashes, ecchymoses or lesions. Cool and dry. HEAD: Atraumatic. Normocephalic. EYES: Pupils equal round and reactive. Extraocular motions intact. No scleral icterus. No injection or drainage. NECK: Trachea midline. No JVD or lymphadenopathy. CARDIOVASCULAR: Regular rate and rhythm without murmurs, gallops, or rubs. RESPIRATORY: Clear to auscultation. Breath sounds equal bilaterally. No wheezes , rales, or rhonchi. GASTROINTESTINAL: Abdomen soft, non-tender, nondistended. Previous surgical scars. No hepato-splenomegaly, or palpable masses. No guarding. MUSCULOSKELETAL: Extremities without clubbing, cyanosis, or edema. NEUROLOGICAL: Awake and alert and oriented. Motor and sensory grossly within normal limits. Normal speech. A/P Problem List: (1) HONEY (acute kidney injury) ICD Code: N17.9 - Acute kidney failure, unspecified (2) Vomiting ICD Code: R11.10 - Vomiting, unspecified Status: Resolved (3) Dehydration ICD Code: E86.0 - Dehydration Status: Resolved (4) Lactic acid acidosis ICD Code: E87.2 - Acidosis Status: Resolved (5) Weakness ICD Code: R53.1 - Weakness Status: Acute (6) Bronchitis ICD Code: J40 - Bronchitis Status: Acute Assessment and Plan -Intractable vomiting which appears to be mostly posttussive. Patient has dramatically improved and today feels much better without any further vomiting tolerating liquid diet. Abdominal CT scan reviewed showed mesenteric induration in the right upper quadrant which is essentially the same as previous abdominal CT scan last month. Patient has known history of chronic abdominal pain which is unchanged. Patient has been ill with a cough over the past 2 weeks. Chest x-ray negative. Patient has no history of COPD. -We'll advance to regular diet -Continue cough medicine -Hep-Lock IV Start her on cough medicine. Low-dose Solu-Medrol to help with bronchitis. -Acute kidney injury secondary to dehydration. Resolved with IV fluids. She has mild lactic acidosis secondary to this. -Abnormal UA. She has no symptoms of UTI. treat with Cipro pending urine culture. -Hypertension - will continue her home medications. Metoprolol, Norvasc. -Hypothyroidism - continue Synthroid -Depression - continue Zoloft -DVT prophylaxis with SCDs. Patient tolerates regular consistency diet she can be discharged home this afternoon. We'll prescribe several day course of steroids, Levaquin for the UTI , Tessalon Perles. Home health care will be arranged. Follow-up with PCP within 3-5 days. Problem Qualifiers (1) Vomiting: Qualified Codes: R11.2 - Nausea with vomiting, unspecified Smita Roman MD Sep 30, 2017 10:54
[2017-09-30] MEDS ORDERED: MEDR4PAK PO (10:56)
[2017-09-30] MEDS ORDERED: LEVA500T33 PO (10:56)
[2017-09-30] MEDS ORDERED: BENZ100 PO (10:56)
--- NOTE | 2017-09-30 10:59 | HHI.FF ---
Face to Face Verification Diagnosis: (1) Weakness (2) Bronchitis (3) Vomiting (4) Dehydration Physical Therapy Order: Evaluate and Treat I have seen patient Sonja Castelan on 09/30/17. My clinical findings support the need for the requested home health care services because: Patient has SOB Need for psychosocial assistance I certify that my clinical findings support that this patient is homebound because: Unsteady gait/balance Need for psychosocial assistance Smita Roman MD Sep 30, 2017 10:59
[2017-09-30] MEDS ORDERED: CIPROFLOXACIN 200 MG PREMIX 100 ML IV SCH (11:00)
[2017-09-30 12:00] VITALS: BP 150/68; PULSE 78; TEMP 97.6; O2SAT 96
--- NOTE | 2017-10-01 08:09 | PQ ---
Physician Query Response Document PATIENT: LOC CROFT : 1935 ADMIT DATE: 09/29/2017 2:22 PM DISCH DATE: 09/30/2017 4:35 PM RESPONDING PROVIDER #: [email or web address] QUERY TEXT: Bronchitis Specificity Bronchitis is documented in the medical record. Please specify the type of bronchitis such as: Acuity: -- Acute -- Acute on chronic -- Chronic -- Other (please specify in the medical record) -- Clinically unable to determine -- Unknown Type: -- Allergic -- Aspiration -- Asthmatic -- Chronic obstructive bronchitis -- Obstructive bronchitis -- Other (please specify in the medical record) -- Clinically unable to determine -- Unknown The patient's Clinical Indicators include: Intractable vomiting which appears to be mostly posttussive. no history of COPD. Start her on cough medicine. Low-dose Solu-Medrol to help with bronchitis. Query created by: Irina Herrera on 09/30/2017 9:35 AM RESPONSE TEXT: Acute bronchitis Electronically signed by: Smita Roman MD 10/01/2017 8:05 AM
== END 2017-09-30 16:35 | DRG 683 ==
LOC: PHED 07:41 → PHEDA 11:07 → PH3B 13:29 → OBSVTOIN 14:22
PROVIDERS: ADMIT Family Medicine; ATTEND Family Medicine
DX: N17.9 Acute kidney failure, unspecified (principal); E87.2 Acidosis; N39.0 Urinary tract infection, site not specified; E86.0 Dehydration; Z68.41 Body mass index [BMI] 40.0-44.9, adult; J20.9 Acute bronchitis, unspecified; I10 Essential (primary) hypertension; E03.9 Hypothyroidism, unspecified; G89.29 Other chronic pain; E66.9 Obesity, unspecified; E78.5 Hyperlipidemia, unspecified; M19.90 Unspecified osteoarthritis, unspecified site; K21.9 Gastro-esophageal reflux disease without esophagitis; R10.33 Periumbilical pain; F32.9 Major depressive disorder, single episode, unspecified; F41.9 Anxiety disorder, unspecified; Z88.5 Allergy status to narcotic agent; Z90.49 Acquired absence of other specified parts of digestive tract
CPT/HCPCS: 71010; 74176; 80048; 80053; 81001; 83605; 83690; 83880; 85025; 87077; 87086; 87186; 94640; 94664; 96361; 96374; 96375; J0744; J1170; J2270; J2405; J2920; J2930; J7030

== ENCOUNTER 2018-02-22 08:42 | Emergency (ER) | payer MEDICARE, OTHER ==
[~2018-02-22] VITALS: Ht 157.5 cm; Wt 84.6 kg
[~2018-02-22 08:42] MED LIST changes: -ALKATAB; +BENZ100 PO; -CIPR-9 PO; -DICY10 PO; +LEVA500T33 PO; -MACR100C2 PO; +MEDR4PAK PO; -METR1TAB76 PO; -OXYC-432 PO; -ZOFR4TAB PO; -ZOFR4TAB3 SL
[2018-02-22 08:49] VITALS: BP 152/67; PULSE 90; RESP 20; TEMP 98.4; O2SAT 97
[2018-02-22] MEDS ORDERED: BIOTCAP PO (09:14)
[2018-02-22] MEDS ORDERED: LEVO25TA4 PO (09:14)
[2018-02-22] MEDS ORDERED: SIMV80TA PO (09:14)
[2018-02-22] MEDS ORDERED: ASPI81CH7 CHEW (09:14)
[2018-02-22] MEDS ORDERED: VITATAB43 PO (09:14)
[2018-02-22] MEDS ORDERED: AMLO5TAB2 PO (09:14)
[2018-02-22] MEDS ORDERED: SERT-132 PO (09:14)
[2018-02-22] MEDS ORDERED: MELO7.5T27 PO (09:14)
[2018-02-22] MEDS ORDERED: FISHCAP4 PO (09:14)
[2018-02-22] MEDS ORDERED: RANI150T PO (09:14)
[2018-02-22] MEDS ORDERED: OXYB5TAB8 PO (09:22)
[2018-02-22] MEDS ORDERED: IPRASOL INH (09:22)
[2018-02-22] MEDS ORDERED: ALBU1AER5 INH (09:22)
[2018-02-22] MEDS ORDERED: PROPARACAINE HCL 0.5% OPHT SOLN 15 ML BTL EACH EYE ONE (09:30)
--- NOTE | 2018-02-22 09:56 | PD ---
HPI Chief Complaint: Cold / Flu Symptoms Time Seen by Provider: 09:15 Travel History International Travel<30 days: No Contact w/Intl Traveler<30days: No Traveled to known affect area: No History of Present Illness HPI 82-year-old female presents emergency department with 3 days of eye discomfort and pain. Patient states that she has had yellow discharge as well. She denies any visual changes, headache. She denies fever, chills. States she has had a cough and congestion for about 2 weeks that is worsened over the last week. Patient denies shortness of breath, chest pain, abdominal pain. Patient denies any history of glaucoma or other eye problems. She does not wear corrective lenses. Denies any chemical or other exposures to the eyes. Says the redness started in the right eye and is spread over the left eye for the last 2 days. PFSH Past Medical History Arthritis: Yes Asthma: No Autoimmune Disease: No Blood Disorders: Yes Anxiety: Yes Depression: Yes Heart Rhythm Problems: No Cancer: No Cardiovascular Problems: No High Cholesterol: Yes Chemotherapy: No Chest Pain: No Congestive Heart Failure: No COPD: No Cerebrovascular Accident: No Diabetes: Yes Patient Takes Glucophage: No Diminished Hearing: No Diverticulitis: Yes Deep Vein Thrombosis: Yes Endocrine: Yes Gastrointestinal Disorders: Yes (reflux diaherra) GERD: Yes Genitourinary: Yes Headaches: No Hepatitis: No Hiatal Hernia: No Hypertension: Yes Immune Disorder: No Implanted Vascular Access Dvce: No Kidney Stones: Yes Musculoskeletal: Yes (arthritis , low back pain) Neurologic: Yes Psychiatric: Yes (anxiety depression) Reproductive: No Respiratory: Yes (COPD) Immunizations Current: No Migraines: No Myocardial Infarction: No Pneumonia: Yes Radiation Therapy: No Renal Failure: No Seizures: No Sleep Apnea: No Thyroid Disease: Yes Ulcer: Yes PNEUMOCCOCAL Vaccine (Year): 1 ?: Not Menopausal: Yes Past Surgical History Abdominal Surgery: Yes (partial colon resection) AICD: No Appendectomy: Yes Arteriovenous Shunt: No Cardiac Surgery: No Cholecystectomy: No Ear Surgery: No Endocrine Surgery: No Eye Surgery: Yes (mervat cataract surgery) Genitourinary Surgery: Yes (OR FOR DIVERTICULITIS; PERHAPS A PARTILAL COLECTOMY ) Gynecologic Surgery: Yes (HYSTERECTOMY) Hysterectomy: Yes Insulin Pump: No Joint Replacement: No Neurologic Surgery: No Oral Surgery: No Pacemaker: No Thoracic Surgery: No Tonsillectomy: Yes Other Surgery: Yes (GASTRIC BYPASS WITH REVERSAL 30 YEARS AGO) Family History Family Hypercholesterolemia: Yes Social History Alcohol Use: Yes (social) Tobacco Use: No Substance Use: No Allergies-Medications (Allergen,Severity, Reaction): Coded Allergies: codeine (Unverified Adverse Reaction, Severe, Nausea/Vomiting, 02/22/18) NAUSEA/VOMITING Reported Meds & Prescriptions Reported Meds & Active Scripts Active Acular Opth Drops (Ketorolac Tromethamine) 0.5% Drops 1 Drop EACH EYE QID 5 Days Erythromycin Opth Oint 5 Mg/Gm Oint 1 Applic EACH EYE QID 7 Days Azithromycin 250 Mg Tab 250 Mg PO DIRECTED Take 2 tabs (500 mg) on day 1 then 1 tab daily x 4 days. Reported Ditropan (Oxybutynin Chloride) 5 Mg Tab 5 Mg PO Q12HR Duoneb (Ipratropium-Albuterol Neb) 0.5-2.5 Mg/3 Ml Neb 1 Nebule INH Q6HR NEB Proair Respiclick Inh (Albuterol Sulfate) 90 Mcg/Act Aerp 1-2 Puff INH Q4-6H PRN Ranitidine (Ranitidine HCl) 150 Mg Tab 150 Mg PO BID Sertraline (Sertraline HCl) 50 Mg Tab 50 Mg PO DAILY Amlodipine (Amlodipine Besylate) 5 Mg Tab 5 Mg PO DAILY Vitamin E65-Ooari Acid (Cobalamine Combinations) 500-400 Mcg Tab 1 Tab PO DAILY Simvastatin 80 Mg Tab 80 Mg PO DAILY Meloxicam 7.5 Mg Tab 7.5 Mg PO BID Levothyroxine (Levothyroxine Sodium) 25 Mcg Tab 25 Mcg PO DAILY Fish Oil + D3 (Fish Oil-Cholecalciferol) 1,200-1,000 Mg-Unit Cap 1 Cap PO DAILY Biotin 5 Mg Cap 5 Mg PO DAILY Aspirin Children's (Aspirin) 81 Mg Chew 81 Mg CHEW DAILY Metoprolol Succinate ER 24 HR (Metoprolol Succinate) 50 Mg Tab 50 Mg PO DAILY Lasix (Furosemide) 20 Mg Tab 20 Mg PO DAILY Vasotec (Enalapril Maleate) 10 Mg Tab 10 Mg PO BID Review of Systems Except as stated in HPI: all other systems reviewed are Neg Physical Exam Narrative GENERAL: Well-nourished, well-developed patient. SKIN: Focused skin assessment warm/dry. HEAD: Normocephalic. EYES: No scleral icterus. Scleral injection, yellow and white discharge, NECK: Supple, trachea midline. No JVD or lymphadenopathy. CARDIOVASCULAR: Regular rate and rhythm without murmurs, gallops, or rubs. RESPIRATORY: Breath sounds equal bilaterally. No accessory muscle use. GASTROINTESTINAL: Abdomen soft, non-tender, nondistended. MUSCULOSKELETAL: No cyanosis, or edema. BACK: Nontender without obvious deformity. No CVA tenderness. Data Data Last Documented VS Vital Signs Date Time Temp Pulse Resp B/P (MAP) Pulse Ox O2 Delivery O2 Flow Rate FiO2 02/22/18 09:07 20 95 Room Air 02/22/18 08:49 98.4 90 152/67 (95) Orders Orders Proparacaine 0.5% Opth Soln (Alcaine 0.5 (02/22/18 09:30) Ed Discharge Order (02/22/18 10:05) MDM Medical Decision Making Medical Screen Exam Complete: Yes Emergency Medical Condition: Yes Differential Diagnosis Conjunctivitis, upper respiratory infection, viral syndrome Narrative Course 82-year-old female presents emergency department with current concerns over redness and I discharged and cough and congestion for 1-2 weeks. Vital signs are stable. Physical exam findings consistent with conjunctivitis, viral versus bacterial and an upper respiratory infection. Lungs clear to auscultation bilaterally. No flourescien uptake. Tonopen 13 OD, 17 OS. Jhonny sign negative Antibiotics for eyes. Acular for the pain. Azithromycin for cough and congestion. There is a concern for bacterial conjunctivitis based off of history and physical. Because of patient's age in 2 weeks of cough and congestion, patient should take azithromycin as well. Patient advised to follow-up with primary care physician. Follow-up with salvager if symptoms do not resolve or visual changes occur. Advised to follow-up with primary care physician within 2-3 days. Diagnosis Primary Impression: Upper respiratory infection Qualified Codes: J06.9 - Acute upper respiratory infection, unspecified Additional Impression: Conjunctivitis Qualified Codes: H10.33 - Unspecified acute conjunctivitis, bilateral Referrals: [facility] Primary Care Physician Additional Instructions: Take medication as prescribed. Follow-up with primary care physician this week. If her symptoms persist or worsen return to emergency department. Scripts Ketorolac Opth Drops (Acular Opth Drops) 0.5% Drops 1 DROP EACH EYE QID for Pain/Inflammation for 5 Days, #5 ML 0 Refills Prov: John Paul Viveros MD 02/22/18 Erythromycin Opth Oint (Erythromycin Opth Oint) 5 Mg/Gm Oint 1 APPLIC EACH EYE QID for Infection for 7 Days, #1 TUBE 0 Refills Prov: John Paul Viveros MD 02/22/18 Azithromycin (Azithromycin) 250 Mg Tab 250 MG PO DIRECTED for Infection, #6 TAB 0 Refills Take 2 tabs (500 mg) on day 1 then 1 tab daily x 4 days. Prov: John Paul Viveros MD 02/22/18 Disposition: 01 DISCHARGE HOME Condition: Stable Patti Epperson Feb 22, 2018 09:56
[2018-02-22] MEDS ORDERED: ERYTOIN10 EACH EYE (09:57)
[2018-02-22] MEDS ORDERED: KETO1SOL3 EACH EYE (09:57)
[2018-02-22] MEDS ORDERED: AZIT250T3 PO (09:57)
== END 2018-02-22 10:57 | disposition home or self-care (01) ==
LOC: PHEFT 08:42
DX: J06.9 Acute upper respiratory infection, unspecified (principal); H10.33 Unspecified acute conjunctivitis, bilateral; F41.8 Other specified anxiety disorders; E78.00 Pure hypercholesterolemia, unspecified; E11.9 Type 2 diabetes mellitus without complications; K21.9 Gastro-esophageal reflux disease without esophagitis; I10 Essential (primary) hypertension; Z87.442 Personal history of urinary calculi; Z88.5 Allergy status to narcotic agent; Z86.718 Personal history of other venous thrombosis and embolism
CPT/HCPCS: 99283